=== PATIENT | female | born 1930 | race Caucasian/White ===

== ENCOUNTER 2016-07-21 14:51 | Outpatient (CLI) ==
[2014-10-07 18:55] VITALS: BMI 26.6
--- NOTE | 2016-07-21 15:21 | DI ---
EXAM: Radiographs, left tibia and fibula HISTORY: Left leg pain. COMPARISON: None available. TECHNIQUE: Two views. FINDINGS: Bone mineralization is decreased. There is no fracture or dislocation. Moderate osteoar thritic changes of the lateral knee joint compartment noted. Diffuse subcutaneous edema seen over t he distal aspect of the lower leg. IMPRESSION: 1. No fracture or dislocation. 2. Subcutaneous edema. 3. 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
--- NOTE | 2016-07-21 15:26 | DI ---
EXAM: Chest two view, frontal and lateral views. HISTORY: Cough. COMPARISON: 08/17/2014. FINDINGS: Heart is mildly enlarged. Atherosclerotic calcifications are present. Lungs are grossly clear without pleural effusion or pneumothorax. Degenerative changes present in the spine. IMPRESSION: No acute process.
== END 2016-07-21 14:52 | disposition home or self-care (01) ==
LOC: RAD 14:51
PROVIDERS: ATTEND Emergency Medicine
DX: M79.605 Pain in left leg (principal); R05 Cough

== ENCOUNTER 2017-01-24 00:56 | Emergency (ER) ==
[2017-01-24 01:10] VITALS: BP 152/98; TEMP 98.5; BMI 25.0
[2017-01-24 01:28] LABS: BILIRUBIN,URINE Negative (NEGATIVE); KETONES,URINE Negative (NEGATIVE); LEUKOCYTE ESTERASE ,URINE Trace (NEGATIVE); NITRITE,URINE Negative (NEGATIVE); PH,URINE 7.5 (5-9); PROTEIN,URINE Negative (NEGATIVE); URINE, BLOOD Negative (NEGATIVE)
[2017-01-24 01:32] LABS: BASOPHILS # (AUTO) 0.1 K/uL (0-0.2); BASOPHILS % (AUTO) 0.9 % (0.0-3.0); EOSINOPHILS % (AUTO) 0.4 % (0.0-7.0); HEMATOCRIT 36.9 % (37.0-47.0); HEMOGLOBIN 12.8 g/dl (12.0-16.0); LYMPHOCYTES # (AUTO) 1.7 K/uL (0.60-3.4); LYMPHOCYTES % (AUTO) 24.4 (10.0-50.0); MEAN CORPUSCULAR HEMOGLOBIN 33.4 pg (27.0-31.0); MEAN CORPUSCULAR HGB CONC 34.7 (31.8-35.4); MEAN CORPUSCULAR VOLUME 96.3 fl (81.0-99.0); MONOCYTES # (AUTO) 0.5 K/uL (0.4-2.0); MONOCYTES % (AUTO) 7.4 (0-10); NEUTROPHILS # (AUTO) 4.5 K/ul (2.0-6.9); NEUTROPHILS % (AUTO) 65.9; PLATELET COUNT 267 10^3/uL (140-440); RED BLOOD COUNT 3.83 10^6/ul (4.20-5.40)
[2017-01-24 01:34] LABS: ADD URINE MICROSCOPIC YES
[2017-01-24 01:55] LABS: ESR INTERNAL QC INTERNAL QC VALID
[2017-01-24 01:56] LABS: ERYTHROCYTE SEDIMENTATION RATE 24 mm/hr (0-20)
--- NOTE | 2017-01-24 01:57 | CT ---
EXAM: CT scan thorax without contrast HISTORY: Pain COMPARISON: CT scan thorax 08/17/2014 FINDINGS: Contiguous axial images obtained through the thorax without contrast utilizing 5-mm collim ation. Sagittal and coronal reconstructions were imaged and reviewed.. The thoracic inlet is unrema rkable. There are subcentimeter prevascular pretracheal lymph nodes. The heart is enlarged without pericardial effusion. There is moderate coronary artery calcification.. There is no evidence of nod ularity, infiltrate or effusion. There is a stable sclerotic focus at T5. Degenerate disc disease i s seen within the lower thoracic and upper lumbar spine. IMPRESSION: Cardiomegaly with coronary artery calcification. No evidence of active pulmonary disease. Ectatic ascending aorta.
[2017-01-24 02:02] LABS: ALBUMIN 4.2 g/dL (3.4-5.0); ALBUMIN/GLOBULIN RATIO 1.27; ANION GAP 14.1; BILIRUBIN,TOTAL 0.37 mg/dL (0.00-1.20); BUN/CREATININE RATIO 6.25; CALCIUM 10.1 mg/dL (8.2-10.2); CREATININE 0.64 mg/dL (0.60-1.30); POTASSIUM 4.1 mmol/L (3.5-5.10); TOTAL PROTEIN 7.5 g/dL (5.8-8.1); TROPONIN I 0.03 ng/ml (0.0000-0.4000)
[2017-01-24 02:03] LABS: CREATINE KINASE MB 3.2 ng/ml (0.0-3.6)
--- NOTE | 2017-01-24 02:04 | CT ---
EXAM: CT of the abdomen and pelvis without contrast. HISTORY: Abdominal pain. PROCEDURE: Contiguous axial CT images of the abdomen and pelvis without contrast with coronal and sa gittal reformats. FINDINGS: The liver, gallbladder, pancreas, spleen, adrenal glands and kidneys are normal in appeara nce. The abdominal aorta is within normal limits in diameter. The appendix is not visualized. There is fecal stasis in the cecum and ascending colon. There is a moderate amount of air in the colon. No bowel obstruction. There is diverticulosis of the colon with no evidence of diverticulitis. No f ree fluid or free air in the abdomen or pelvis. The bladder is adequately filled. There is a 2.4 cm bladder diverticulum along the left posterior wall of the bladder. The uterus is unremarkable. 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 There are degenerative changes in the spine. Impression: Nonspecific nonobstructive bowel gas pattern as described with fecal stasis in the colon. Diverticulosis of the colon without diverticulitis. Bladder diverticulum as described.
[2017-01-24] MEDS ORDERED: DULCOLAX RC STA (02:19)
[2017-01-24] MEDS ORDERED: CITRATE OF MAGNESIA PO STA (02:19)
--- NOTE | 2017-01-24 04:48 | ED.PDOC ---
General ED Provider: Dr. VLADIMIR BA-ER Chief Complaint: Abdominal Pain Stated Complaint: im hurting Time Seen by Physician: 01:00 Mode of Arrival: Wheelchair Information Source: Patient Exam Limitations: No limitations Primary Care Provider: FRANSICO WHALEN Nursing and Triage Documentation Reviewed and Agree: Yes GI Complaint Exam - Abdominal Pain Complaint/Exam Onset: Gradual Duration: several hours Symptoms Are: Still present Timing: Constant Initial Severity: Mild Current Severity: Mild Location of Pain: Discrete, RLQ Character: Reports: Dull, Aching, Throbbing, Cramping Alleviating: Reports: Spontaneous resolution Associated Signs and Symptoms: Reports: Constipation. Denies: Diaphoresis, Fever, Cough, Chest pain, Dizziness, Back pain, Blood in stool, Dysuria, Urinary frequency, Decreased urine output, Decreased appetite, Vaginal bleeding , Vaginal discharge, Nausea, Vomiting, Diarrhea, Sore throat, Decreased activity Related History: Reports: Similar episode Abdominal Findings: Present: None Differential Diagnoses: Bowel Obstruction, Constipation, Gastroenteritis, Pancreatitis Quality Indicator For Non-Traumatic Chest Pain/Syncope: EKG Performed Review of Systems - Review Of Systems Constitutional: Reports: No symptoms Eyes: Reports: No symptoms Ears, Nose, Mouth, Throat: Reports: No symptoms Respiratory: Reports: No symptoms Cardiac: Reports: No symptoms GI: Reports: Abdominal pain : Reports: No symptoms Musculoskeletal: Reports: No symptoms, Muscle pain Skin: Reports: No symptoms Neurological: Reports: No symptoms Endocrine: Reports: No symptoms Hematologic/Lymphatic: Reports: No symptoms All Other Systems: Reviewed and Negative Past Medical History - Past Medical History Previously Healthy: No Endocrine: Reports: Unknown Cardiovascular: Reports: Unknown Respiratory: Reports: Unknown Hematological: Reports: Unknown Gastrointestinal: Reports: Unknown Genitourinary: Reports: Unknown Neuro/Psych: Reports: Unknown Musculoskeletal: Reports: Unknown Cancer: Reports: Unknown Last Menstrual Period: post menopausal - Surgical History General Surgical History: Reports: Unknown - Family History Family History: Reports: Unknown - Social History Smoking Status: Never smoker Hx Substance Use: No Alcohol Screening: None - Immunizations Tetanus Shot up to Date: Yes Physical Exam - Physical Exam Appearance: Well-appearing, No pain distress, Well-nourished Pain Distress: Mild Eyes: JENNA, EOMI, Conjunctiva clear ENT: Ears normal, Nose normal, Oropharynx normal Neck: Supple Respiratory: Airway patent, Breath sounds clear, Breath sounds equal, Respirations nonlabored Cardiovascular: RRR, Pulses normal, No rub, No murmur GI/: Soft, Nontender, No masses, Bowel sounds normal, No Organomegaly Musculoskeletal: Normal strength, ROM intact, No edema, No calf tenderness Skin: Warm Neurological: Sensation intact Psychiatric: Affect appropriate, Mood appropriate Interpretation - Radiology Interpretation Radiology Interpretation By: Radiologist Radiology Results: Negative Exam Interpreted: CT Scan ("nonspecific bowel gas pattern wtih fecal stasis in the colon") - EKG Interpretation Time of EKG #1: 01:00 Rate: Normal [place]: Left ST Segment: Normal Re-Evaluation - Re-Evaluation Time of Re-Evaluation: 04:48 Status: Improved (after laxatives--expelled stool and gas and the symptoms resolved--no further abd pain) Vital Signs Stable: Yes Pain Level: 0 Appearance: NAD Lungs: Clear Skin: Warm and Dry Neuro: Alert and Oriented X3 CV: RRR Critical Care Note - Critical Care Note Total Time (mins): 0 Course - Course Hematology/Chemistry: 01/24/17 01:20 01/24/17 01:20 Orders, Labs, Meds: Lab Review 01/24/17 01/24/17 01/24/17 01:17 01:20 01:20 WBC 6.80 RBC 3.83 L Hgb 12.8 Hct 36.9 L MCV 96.3 MCH 33.4 H MCHC 34.7 RDW Coeff of Alfie 11.9 Plt Count 267 Immature Gran % (Auto) 1.0 Neut % (Auto) 65.9 Lymph % (Auto) 24.4 Anderson % (Auto) 7.4 Eos % (Auto) 0.4 Baso % (Auto) 0.9 Immature Gran # (Auto) 0.1 Neut # 4.5 Lymph # 1.7 Anderson # 0.5 Eos # 0.0 Baso # 0.1 ESR 24 H Sodium 135 L Potassium 4.1 Chloride 94 L Carbon Dioxide 31 Anion Gap 14.1 BUN 4 L Creatinine 0.64 Estimated GFR (MDRD) 88.00 BUN/Creatinine Ratio 6.25 Glucose 114 Calcium 10.1 Total Bilirubin 0.37 AST 42 H ALT 24 Alkaline Phosphatase 105 Total Creatine Kinase 130 CK-MB (CK-2) 3.2 CK-MB (CK-2) % 2.67584 Troponin I 0.0300 Total Protein 7.5 Albumin 4.2 Globulin 3.3 Albumin/Globulin Ratio 1.27 Amylase 59 Lipase 75 Urine Color Yellow Urine Clarity Clear Urine pH 7.5 Ur Specific [place] 1.015 Urine Protein Negative Urine Glucose (UA) Negative Urine Ketones Negative Urine Blood Negative Urine Nitrite Negative Urine Bilirubin Negative Urine Urobilinogen 0.2 Ur Leukocyte Esterase Trace Urine Microscopic WBC 0-2 Ur Squamous Epith Cells 0-2 Orders Category Date Time Status EKG-(ED ONLY) Stat CARDIO 01/24/17 01:05 Ordered AMYLASE Stat LAB 01/24/17 01:20 Completed CBC W/ AUTO DIFF Stat LAB 01/24/17 01:20 Completed COMPREHENSIVE METABOLIC PANEL Stat LAB 01/24/17 01:20 Completed CREATINE KINASE Stat LAB 01/24/17 01:20 Completed ESR Stat LAB 01/24/17 01:20 Completed LIPASE Stat LAB 01/24/17 01:20 Completed TROPONIN I Stat LAB 01/24/17 01:20 Completed URINALYSIS C & S IF INDICATED Stat LAB 01/24/17 01:17 Completed Bisacodyl [Dulcolax] MEDS 01/24/17 02:19 Discontinued 10 mg RC ONCE STA Magnesium Citrate [Citrate of Magnesia] MEDS 01/24/17 02:19 Discontinued 5 oz PO ONCE STA CT ABDOMEN/PELVIS WO CONTRAST Stat RADS 01/24/17 01:[address] CHEST W/O CONTRAST Stat RADS 01/24/17 01:05 Completed Medications Discontinued Medications Generic Name Dose Route Start Last Admin Trade Name Freq PRN Reason Stop Dose Admin Bisacodyl 10 mg 01/24/17 02:19 01/24/17 02:32 Dulcolax RC 01/24/17 02:20 10 mg ONCE STA Administration Magnesium Citrate 5 oz 01/24/17 02:19 01/24/17 02:32 Citrate Of Magnesia PO 01/24/17 02:20 5 oz ONCE STA Administration Vital Signs: Temp Pulse Resp BP Pulse Ox 01/24/17 00:59 98.5 F 82 18 152/98 H 95 Departure - Departure Time of Disposition: 04:49 Disposition: HOME SELF-CARE Discharge Problem: Constipation Qualifiers: Constipation type: unspecified constipation type Qualified Code(s): K59.00 - Constipation, unspecified Instructions: Constipation (ED) Condition: Good Pt referred to PMD for follow-up: Yes Additional Instructions: f/u with dr whalen Allergies/Adverse Reactions: Allergies celecoxib [From Celebrex] Adverse Reaction (Intermediate, Verified 10/07/14 18: 56) Rash Iodinated Contrast- Oral and IV Dye [Iodinated Contrast Media - IV Dye] Adverse Reaction (Verified 10/07/14 18:56) Home Medications: Ambulatory Orders Gabapentin [Gabapentin] 1 cap PO BID 07/17/14 Pantoprazole Sodium 40 mg PO BEDTIME 07/17/14 Hydrocodone/Acetaminophen [Hydrocodon-Acetaminoph 7.5-325] 1 tab PO QID PRN # 120 tablet 07/22/14 Losartan Potassium [Cozaar] 100 mg PO DAILY 08/18/14 Rosuvastatin Calcium [Crestor] 10 mg PO DAILY 08/18/14 Amlodipine Besylate [Norvasc] 5 mg PO BEDTIME 10/07/14 Furosemide [Lasix] 20 mg PO DAILY 10/07/14 Docusate Sodium [Colace] 1 tab PO BID PRN 01/24/17 Disposition Discussed With: Patient, Family
== END 2017-01-24 04:55 | disposition home or self-care (01) ==
LOC: ED 00:56
DX: K59.00 Constipation, unspecified (principal); R10.9 Unspecified abdominal pain; Z79.899 Other long term (current) drug therapy
CPT/HCPCS: 36415; 80053; 81001; 82150; 82550; 82553; 83690; 84484; 85025; 85651; 93005; 93010; 99283

== ENCOUNTER 2017-02-15 13:40 | Outpatient (CLI) | END 2017-02-15 13:41 | disposition home or self-care (01) | LOC: RAD 13:40 | PROVIDERS: ATTEND Internal Medicine | DX: Z12.31 Encounter for screening mammogram for malignant neoplasm of breast (principal) | CPT/HCPCS: 77067 ==

== ENCOUNTER 2017-03-14 06:44 | Outpatient (CLI) ==
--- NOTE | 2017-03-15 07:39 | ECHO2D ---
Date of Exam: 03/14/17 Ordering Physician: FRANSICO BALLARD MD Reason for Echo: HYPERTENSION, DYSLIPIDEMIA, CARDIOMYOPATHY, SHORT OF BREATH M-Mode Normal Adult Results LV Dimensions Normal Adult Results AoV Opening excursions >1.6 >1.6 LVEDD-base- 3.5-5.8 5.5 Ao root dimensions 2.0-3.7 2.8 LVESD-base- 3.1-4.6 L. Atrium dimensions 1.9-3.8 4.4 Post. Wall thickness 0.8-1.1 1.4 IV septum (thickness) 0.7-1.2 1.4 Post. Wall excursion 0.72-1.3 0.7 Septal motion 0.6 Systolic motion R. Ventricular cavity 1.5-2.0 NORMAL LVEF 60% 40-45% Paradoxical septal wall motion NORMAL 2-D : HYPOKINETIC LEFT VENTRICLE: ENLARGED LEFT ATRIAL CAVITY, NORMAL VALVES, NO EFFUSION, NO THROMBUS M-MODE: MV: NORMAL AV: NORMAL TV: NORMAL PV: CHAMBER SIZE: ENLARGED LEFT ATRIAL CAVITY WALL MOTION: HYPOKINETIC LEFT VENTRICLE PERICARDIUM: NORMAL INTERPRETATION: 1. LEFT VENTRICULAR HYPERTROPHY WITH ENLARGED LEFT ATRIAL CAVITY 2. HYPOKINETIC LEFT VENTRICLE (40-45% EF) 3. NORMAL VALVES MTDD
== END 2017-03-14 06:45 | disposition home or self-care (01) ==
LOC: CAR 06:44
PROVIDERS: ATTEND Internal Medicine
DX: E78.5 Hyperlipidemia, unspecified (principal); I10 Essential (primary) hypertension; R06.02 Shortness of breath; I42.9 Cardiomyopathy, unspecified
CPT/HCPCS: 93005; 93010

== ENCOUNTER 2017-03-17 06:38 | Outpatient (CLI) ==
--- NOTE | 2017-03-17 06:48 | ECHOSTRESS ---
Date of Exam: [] Ordering Physician: [] Reason for Echo: [] Auscultation: [] Murmurs: [] M-Mode Normal Adult Results LV Dimensions Normal Adult Results AoV Opening excursions >1.6 LVEDD-base- 3.5-5.8 Ao root dimensions 2.0-3.7 LVESD-base- 3.1-4.6 L. Atrium dimensions 1.9-3.8 Post. Wall thickness 0.8-1.1 IV septum (thickness) 0.7-1.2 Post. Wall excursion 0.72-1.3 Septal motion Systolic motion R. Ventricular cavity 1.5-2.0 LVEF 60% Paradoxical septal wall motion 2-D: [] M-MODE: MV: AV: TV: PV: CHAMBER SIZE: WALL MOTION: [] PERICARDIUM: INTERPRETATION: 1. [] MTDD
[2017-03-17] MEDS ORDERED: DOBUTAMINE 250 ML IV ONE (07:06)
[2017-03-17] MEDS ORDERED: ATROPINE SULFATE PFS ONE (07:07)
--- NOTE | 2017-03-17 10:19 | NM ---
EXAM: Myocardial perfusion imaging HISTORY: Abnormal EKG and hypertension, shortness of breath COMPARISON: None. TECHNIQUE: Patient was injected 4.1 mCi of thallium 201 chloride intravenously while at rest. SPECT imaging of the heart was acquired. Patient was stressed using dobutamine protocol and injected 25.1 mCi of Tc99m Sestamibi intravenously. Another SPECT imaging of the heart was then performed. Gated cardiac study was also acquired. FINDINGS: Post stress images show mildly enlarged left ventricular cavity size. Isotope distribution is homogeneous in the left ventricle myocardium. No evidence of dobutamine-induced reversible ische cem. No fixed defect is visualized. Left ventricular ejection fraction is 35%. Mild generalized hyp okinesis. IMPRESSION: 1. SPECT myocardial imaging at stress and rest shows no evidence of reversible ischemia or infarctio n. 2. Mildly enlarged left ventricle with low ejection fraction of 35%.. Mild generalized hypokinesis.
--- NOTE | 2017-03-17 14:22 | DOBSTECHST ---
Ordering Physician: FRANSICO BALLARD Date of Test: 03/17/17 Reason for Examination: CARDIOMYOPATHY Current Medications: TEMAZEPAM, CARVEDILOL, XANAX, LASIX, NEURONTIN, CRESTOR, AMLODIPINE, COZAAR Height: 65" Weight: 155 LBS Target Heart Rate: 113 ST Segment Stage Time HR BPM BP mmhg Rhythm +/- Up Down Comments/Symptoms Control Sitting 67 166/94 SR X NONE Dobutamine 250mg/D5W 5cmg/KG/mn 10cmg/KG/mn 3:00 75 190/98 SR X NONE 15cmg/KG/mn 2:00 98 178/92 SR X NONE 20cmg/KG/mn 1:19 120 SR X NONE 25cmg/KG/mn 30cmg/KG/mn 35cmg/KG/mn 40cmg/KG/mn Time: 2" HR B/P Time: 6" HR B/P Time: 10" HR B/P Recovery 115 174/90 Recovery 88 166/88 Recovery 75 Total Time: 6:19 Maximum Heart Rate Reached: 120 Interpretation: 95% OXYGEN SATURATION AT REST 1. NO EVIDENCE OF ISCHEMIA BY ST-T WAVE 2. NO CHEST PAIN OR DISCOMFORT LEFT VENTRICULAR CONTRACTILITY--HYPOKINETIC LEFT VENTRICLE AT RESTING AND IMPROVEMENT OF LEFT VENTRICULAR CONTRACTILITY WITH DOBUTAMINE INFUSION SESTAMIBI TO FOLLOW MTDD
--- NOTE | 2017-03-17 14:25 | ECHOSTRESS ---
Date of Exam: 03/17/17 Ordering Physician: FRANSICO BALLARD Reason for Echo: CARDIOMYOPATHY, DOBUTAMINE STRESS TEST--NO ISCHEMIA M-Mode Normal Adult Results LV Dimensions Normal Adult Results AoV Opening excursions >1.6 LVEDD-base- 3.5-5.8 Ao root dimensions 2.0-3.7 LVESD-base- 3.1-4.6 L. Atrium dimensions 1.9-3.8 Post. Wall thickness 0.8-1.1 IV septum (thickness) 0.7-1.2 Post. Wall excursion 0.72-1.3 Septal motion Systolic motion R. Ventricular cavity 1.5-2.0 LVEF 60% Paradoxical septal wall motion 2-D: HYPOKINETIC LEFT VENTRICLE AT REST AND IMPROVED LEFT VENTRICULAR CONTRACTILITY WITH DOBUTAMINE INFUSION M-MODE: MV: AV: TV: PV: CHAMBER SIZE: WALL MOTION: HYPOKINETIC LEFT VENTRICLE AT REST AND IMPROVED LEFT VENTRICULAR CONTRACTILITY WITH DOBUTAMINE INFUSION PERICARDIUM: INTERPRETATION: 1. HYPOKINETIC LEFT VENTRICLE AT REST AND IMPROVED LEFT VENTRICULAR CONTRACTILITY WITH DOBUTAMINE INFUSION MTDD
== END 2017-03-17 06:39 | disposition home or self-care (01) ==
LOC: CAR 06:38
PROVIDERS: ATTEND Internal Medicine
DX: R94.31 Abnormal electrocardiogram [ECG] [EKG] (principal); R06.02 Shortness of breath; I10 Essential (primary) hypertension; Z01.810 Encounter for preprocedural cardiovascular examination

== ENCOUNTER 2017-12-18 22:35 | Outpatient (CLI) | END 2017-12-18 23:10 | disposition short-term general hospital (02) | LOC: AMBL 22:35 | PROVIDERS: ATTEND Family Medicine | DX: R07.9 Chest pain, unspecified (principal); F41.9 Anxiety disorder, unspecified; R06.02 Shortness of breath; I44.7 Left bundle-branch block, unspecified ==

== ENCOUNTER 2018-02-06 00:04 | Inpatient (IN) ==
[2018-02-06] MEDS ORDERED: ZOFRAN 4 MG/2 ML IVP STA (00:45)
--- NOTE | 2018-02-06 00:50 | DI ---
Exam: Chest one-view History: Leg edema FINDINGS: Cardiac silhouette is upper limits. Pulmonary vasculature is normal. No infiltrative opa cities. Mild left hemidiaphragm elevation. Atherosclerotic calcification of the aorta. Dorsal stim ulator leads at the mid thoracic level. No acute chest wall abnormality is seen. Impression: No acute cardiopulmonary disease.
--- NOTE | 2018-02-06 01:04 | CT ---
EXAM: CT abdomen pelvis without intravenous contrast 02/06/2018. Sagittal and coronal reformatted i mages obtained HISTORY: Constipation COMPARISON: None. FINDINGS: The liver, gallbladder, adrenal glands and kidneys show no acute abnormality. No hydronephrosis. The spleen and pancreas show no acute abnormality. There is no bowel obstruction. No CT evidence of constipation. Normal appendix. No acute abnormality of the urinary bladder. The pelvis is partially obscured by s treak artifact secondary to bilateral hip arthroplasty. No free air or free fluid identified. Multilevel chronic degenerative disc disease. Chronic degenerative endplate changes. No acute osseou s abnormality. IMPRESSION: 1. No urinary or bowel obstruction and normal appendix. 2. No acute inflammatory process identified within the abdomen or pelvis within the limitation of a n oncontrast enhanced examination 3. Pelvis partially obscured by streak artifacts secondary to bilateral hip arthroplasty. 4. Multilevel chronic degenerative disc disease. No acute osseous abnormality.
--- NOTE | 2018-02-06 01:36 | ED.PDOC ---
General ED Provider: Dr. VLADIMIR BA-ER Chief Complaint: Constipation Stated Complaint: my legs are swollen Time Seen by Physician: 00:10 Mode of Arrival: Wheelchair Information Source: Patient Exam Limitations: No limitations Primary Care Provider: FRANSICO BALLARD Nursing and Triage Documentation Reviewed and Agree: Yes Does patient meet sepsis criteria?: No System Inflammatory Response Syndrome: Not Applicable Sepsis Protocol: For patient's 13 years and over: Temp is 96.8 and below OR 101 and greater Pulse >90 BPM Resp >20/minute Acutely Altered Mental Status Are patient's symptoms suggestive of a new infection, such as: -Pneumonia -Skin, Soft Tissue -Endocarditis -UTI -Bone, Joint Infection -Implantable Device -Acute Abdominal Infection -Wound Infection -Meningitis -Blood Stream Catheter Infection -Unknown Cardiovascular Complaint Exam - Hypertension Complaint/Exam Onset/Duration: several days Symptoms Are: Still present Reported B/P Prior to Arrival: unknown Aggravating: Reports: None Alleviating: Reports: None Associated Signs and Symptoms: Reports: Swelling Related Surgical History: Reports: None Cardiac Risk Factors: Reports: None Recent Change in Medications: No A/V [place]: No Papilledema Present: No JVD Present: No Carotid Bruit Present: No Femoral Pulses Bounding: Yes Quality Indicator For Non-Traumatic Chest Pain/Syncope: EKG Performed Review of Systems - Review Of Systems Constitutional: Reports: No symptoms Eyes: Reports: No symptoms Ears, Nose, Mouth, Throat: Reports: No symptoms Respiratory: Reports: No symptoms Cardiac: Reports: Edema, Irregular heart rate GI: Reports: No symptoms : Reports: No symptoms Musculoskeletal: Reports: No symptoms Skin: Reports: No symptoms Neurological: Reports: No symptoms Endocrine: Reports: No symptoms Hematologic/Lymphatic: Reports: No symptoms All Other Systems: Reviewed and Negative Past Medical History - Past Medical History Previously Healthy: No Endocrine: Reports: Unknown Cardiovascular: Reports: Unknown Respiratory: Reports: Unknown Hematological: Reports: Unknown Gastrointestinal: Reports: Unknown Genitourinary: Reports: Unknown Neuro/Psych: Reports: Unknown Musculoskeletal: Reports: Unknown Cancer: Reports: Unknown Last Menstrual Period: menopausal - Surgical History General Surgical History: Reports: Unknown - Family History Family History: Reports: Unknown - Social History Smoking Status: Never smoker Hx Substance Use: No Alcohol Screening: None - Immunizations Tetanus Shot up to Date: Yes (2 yrs ago) Physical Exam - Physical Exam Appearance: Well-appearing, No pain distress, Well-nourished Eyes: JENNA, EOMI, Conjunctiva clear ENT: Ears normal Neck: Supple Respiratory: Airway patent, Breath sounds clear, Breath sounds equal, Respirations nonlabored Cardiovascular: RRR, Pulses normal, No rub, No murmur, Irregular rhythm GI/: Soft, Nontender, No masses, Bowel sounds normal, No Organomegaly Musculoskeletal: Normal strength Skin: Warm Neurological: Sensation intact, Motor intact, Reflexes intact, Cranial nerves intact, Alert, Oriented Psychiatric: Affect appropriate, Mood appropriate Interpretation - Radiology Interpretation Radiology Interpretation By: Radiologist Radiology Results: Negative Exam Interpreted: Portable CXR - EKG Interpretation Time of EKG #1: 01:37 Rate: Normal Rhythm: Other Ectopy: None [place]: [place] ST Segment: Normal Interpretation: afib Critical Care Note - Critical Care Note Total Time (mins): 0 Course - Course Hematology/Chemistry: 02/06/18 00:40 02/06/18 00:40 Orders, Labs, Meds: Lab Review 02/06/18 02/06/18 02/06/18 00:22 00:30 00:40 WBC 8.32 RBC 3.85 L Hgb 12.6 Hct 35.2 L MCV 91.4 MCH 32.7 H MCHC 35.8 H RDW Coeff of Alfie 11.4 L Plt Count 269 Immature Gran % (Auto) 0.6 Neut % (Auto) 83.2 Lymph % (Auto) 10.7 [place] % (Auto) 5.3 Eos % (Auto) 0.1 Baso % (Auto) 0.1 Immature Gran # (Auto) 0.1 Neut # (Auto) 6.9 Lymph # (Auto) 0.9 [place] # (Auto) 0.4 Eos # (Auto) 0.0 Baso # (Auto) 0.0 Puncture Site Rbrach O2 Saturation 96.0 ABG pH 7.481 H ABG pCO2 45.9 H ABG pO2 78.0 L ABG HCO3 34.3 H ABG Total CO2 36 H ABG Base Excess 11 H Kleber Test + FiO2 % 21.0 Sodium Potassium Chloride Carbon Dioxide Anion Gap BUN Creatinine Estimated GFR (MDRD) BUN/Creatinine Ratio Glucose Calcium Total Bilirubin AST ALT Alkaline Phosphatase Total Creatine Kinase Troponin I NT-Pro-B Natriuret Pep Total Protein Albumin Globulin Albumin/Globulin Ratio Amylase Lipase TSH Urine Color Yellow Urine Clarity Clear Urine pH 7.0 Ur Specific [place] 1.010 Urine Protein Negative Urine Glucose (UA) Negative Urine Ketones Negative Urine Blood Negative Urine Nitrite Negative Urine Bilirubin Negative Urine Urobilinogen 0.2 Ur Leukocyte Esterase Negative 02/06/18 02/06/18 00:40 00:40 WBC RBC Hgb Hct MCV MCH MCHC RDW Coeff of Alfie Plt Count Immature Gran % (Auto) Neut % (Auto) Lymph % (Auto) [place] % (Auto) Eos % (Auto) Baso % (Auto) Immature Gran # (Auto) Neut # (Auto) Lymph # (Auto) [place] # (Auto) Eos # (Auto) Baso # (Auto) Puncture Site O2 Saturation ABG pH ABG pCO2 ABG pO2 ABG HCO3 ABG Total CO2 ABG Base Excess Kleber Test FiO2 % Sodium 121.9 L Potassium 3.12 L Chloride 73.4 L* Carbon Dioxide 37.2 H Anion Gap 14.42 BUN 6.8 L Creatinine 0.64 Estimated GFR (MDRD) 88.00 BUN/Creatinine Ratio 10.62 Glucose 160.8 H Calcium 8.83 Total Bilirubin 0.51 AST 47.2 H ALT 17.3 Alkaline Phosphatase 81.8 Total Creatine Kinase 78.4 Troponin I < 0.012 NT-Pro-B Natriuret Pep 680.000 H Total Protein 7.57 Albumin 4.59 Globulin 2.98 Albumin/Globulin Ratio 1.54 Amylase 55.7 Lipase 77.3 TSH 1.080 Urine Color Urine Clarity Urine pH Ur Specific [place] Urine Protein Urine Glucose (UA) Urine Ketones Urine Blood Urine Nitrite Urine Bilirubin Urine Urobilinogen Ur Leukocyte Esterase Orders Category Date Time Status ABG DRAW REQUEST Stat CARDIO 02/06/18 00:22 Completed EKG-(ED ONLY) Stat CARDIO 02/06/18 00:22 Completed ED IV/MEDIPORT/POWERPORT .ONCE EMERGENCY 02/06/18 00:45 Active ABG Stat LAB 02/06/18 00:22 Completed AMYLASE Stat LAB 02/06/18 00:40 Completed CBC W/ AUTO DIFF Stat LAB 02/06/18 00:40 Completed COMPREHENSIVE METABOLIC PANEL Stat LAB 02/06/18 00:40 Completed CREATINE KINASE Stat LAB 02/06/18 00:40 Completed LIPASE Stat LAB 02/06/18 00:40 Completed NT-PROBNP Stat LAB 02/06/18 00:40 Completed TROPONIN I Stat LAB 02/06/18 00:40 Completed TSH [THYROID STIMULATING HORMONE] Stat LAB 02/06/18 00:40 Completed UA [URINALYSIS C & S IF INDICATED] Stat LAB 02/06/18 00:30 Completed 0.9 % Sodium Chloride [Saline Flush] MEDS 02/06/18 00:45 Ordered 1 syr IVF PRN PRN Ondansetron HCl/Pf [Zofran 4 mg/2 ml] MEDS 02/06/18 00:45 Discontinued 4 mg IVP ONCE STA CT ABDOMEN/PELVIS WO CONTRAST Stat RADS 02/06/18 00:23 Completed CXR [CHEST, 1V AP ONLY] Stat RADS 02/06/18 00:23 Completed Medications Generic Name Dose Route Start Last Admin Trade Name Freq PRN Reason Stop Dose Admin Sodium Chloride 1 syr 02/06/18 00:45 02/06/18 01:16 Saline Flush IVF 1 syr PRN PRN Administration To flush IV Discontinued Medications Generic Name Dose Route Start Last Admin Trade Name Freq PRN Reason Stop Dose Admin Ondansetron HCl 4 mg 02/06/18 00:45 02/06/18 01:16 Zofran 4 Mg/2 Ml IVP 02/06/18 00:46 4 mg ONCE STA Administration Vital Signs: Temp Pulse Resp BP Pulse Ox 02/06/18 00:05 98.4 F 70 18 124/73 93 L FLAKITA Risk Score FLAKITA Risk Score: Risk Score Odds of by 30D 0 0.1 (0.1-0.2) 1 0.3 (0.2-0.3) 2 0.4 (0.3-0.5) 3 0.7 (0.6-0.9) 4 1.2 (1.0-1.5) 5 2.2 (1.9-2.6) 6 3.0 (2.5-3.6) 7 4.8 (3.8-6.1) Departure - Departure Time of Disposition: 01:37 Disposition: ADMITTED INPATIENT Discharge Problem: Hyponatremia CHF (congestive heart failure) Qualifiers: Heart failure type: unspecified Heart failure chronicity: acute on chronic Qualified Code(s): I50.9 - Heart failure, unspecified Instructions: Heart Failure (ED) Condition: Stable Pt referred to PMD for follow-up: Yes IPMP verified?: No Allergies/Adverse Reactions: Allergies celecoxib [From Celebrex] Adverse Reaction (Intermediate, Verified 02/06/18 01: 11) Rash Iodinated Contrast- Oral and IV Dye [Iodinated Contrast Media - IV Dye] Adverse Reaction (Verified 02/06/18 01:11) Home Medications: Ambulatory Orders Gabapentin 1 cap PO BID 07/17/14 Pantoprazole Sodium 40 mg PO BEDTIME 07/17/14 Losartan Potassium [Cozaar] 100 mg PO DAILY 08/18/14 Rosuvastatin Calcium [Crestor] 10 mg PO DAILY 08/18/14 Amlodipine Besylate [Norvasc] 5 mg PO BEDTIME 10/07/14 Furosemide [Lasix] 20 mg PO DAILY 10/07/14 Docusate Sodium [Colace] 1 tab PO BID PRN 01/24/17 Cephalexin [Keflex] 500 mg PO Q8HR 02/06/18 Hydrocodone/Acetaminophen [Hydrocodon-Acetaminophn 10-325] 10 - 325 each PO BID PRN 02/06/18 Morphine Sulfate [Ms Contin] 15 mg PO Q12HR PRN 02/06/18 Naloxegol Oxalate [Movantik] 12.5 mg pe PO DAILY 02/06/18 Ondansetron HCl [Zofran] 4 mg PO TID PRN 02/06/18 Prednisone 10 mg PO BIDWM 02/06/18 Temazepam [Restoril] 30 mg PO BEDTIME PRN 02/06/18 Disposition Discussed With: Patient, Family
[2018-02-06] MEDS ORDERED: COLACE PO PRN (01:42)
[2018-02-06] MEDS ORDERED: ZOFRAN TAB PO PRN (01:42)
[2018-02-06] MEDS ORDERED: NON-FORMULARY MEDICATION (Temazepam [Restoril] 30 MG) PO PRN (01:42)
[2018-02-06] MEDS ORDERED: NORCO 10-325 PO PRN (01:42)
[2018-02-06 03:03] VITALS: BMI 26.1
[2018-02-06] MEDS ORDERED: NORVASC ONE (03:34)
[2018-02-06] MEDS ORDERED: MORPHINE SULFATE TAB ONE (03:34)
[2018-02-06] MEDS ORDERED: RESTORIL ONE (03:35)
[2018-02-06] MEDS ORDERED: K-DUR PO STA (06:34)
[2018-02-06] MEDS: K-DUR PO SCH ×4 (08:29→20:35)
[2018-02-06] MEDS: CRESTOR PO SCH (08:29)
[2018-02-06] MEDS: PREDNISONE PO SCH ×2 (08:29→16:56)
[2018-02-06] MEDS: NEURONTIN PO SCH ×2 (08:29→21:46)
[2018-02-06] MEDS: LOVENOX SUBCUT SCH (08:30)
[2018-02-06] MEDS: COZAAR PO SCH (08:30)
[2018-02-06] MEDS: LASIX IVP SCH (08:30)
[2018-02-06] MEDS ORDERED: DULCOLAX RC STA (08:43)
[2018-02-06] MEDS ORDERED: CITRATE OF MAGNESIA PO STA (08:43)
[2018-02-06] MEDS: MS CONTIN PO PRN (10:03)
--- NOTE | 2018-02-06 11:27 | PCM.PROG ---
Attending Provider: ATTENDING PROVIDER: Dr. FRANSICO BALLARD DATE OF SERVICE: 02/06/18 SUBJECTIVE: This 87 year old WHITE/ F was hospitalized 02/06/18 with leg edema and constipation. The patient was given two enemas, so far no results. The patient also has hypokalemia and hyponatremia. Edema is a lot better than what I saw in the office a few days ago. Left edema is more than right. Calf is nontender. REVIEW OF SYSTEMS: CONSTITUTIONAL: No night sweats. No fatigue, malaise, lethargy. No fever or chills. HEENT: Eyes: No visual changes. No eye pain. No eye discharge. ENT: No runny nose. No epistaxis. No sinus pain. No odynophagia. No congestion. RESPIRATORY: No cough, no congestion. No hemoptysis. No shortness of breath. CARDIOVASCULAR: Leg swelling. No angina symptoms. No CHF symptoms. No atypical chest pain for CAD. No palpitations. No orthopnea.. GASTROINTESTINAL: Positive for constipation. No abdominal pain. No nausea or vomiting. No diarrhea. No hematemesis. No hematochezia. GENITOURINARY: No urgency. No frequency. No dysuria. No hematuria. No obstructive symptoms. No discharge. No pain. No significant abnormal bleeding. MUSCULOSKELETAL: No musculoskeletal pain; no joint swelling. NEUROLOGICAL: Awake, alert, oriented to time, place and person. No headache. No neck pain. No syncope. No seizures. No dizziness. PSYCHIATRIC: Not anxious. No depression. No suicidal thoughts. No homicidal thoughts. SKIN: No rash. No lesions. No wounds. ENDOCRINE: No unexplained weight loss. No weight gain. HEMATOLOGIC/LYMPHATIC: No anemia. No purpura. No petechiae. No prolonged or excessive bleeding. No palpable lymph nodes. PHYSICAL EXAMINATION: GENERAL: The patient is awake, alert and oriented, lying in bed in no distress. VITAL SIGNS: Temperature 97.6 F, Pulse 59, Respiratory Rate 16, BP 121/69, Pulse Ox 99% HEENT: Head normocephalic, atraumatic. Eyes: Extraocular muscles are intact. Pupils are equal, round and reactive to light and accommodation. Ears: No lesions. Nose appeared normal. Throat: No exudate or erythema. NECK: Supple. No JVD, no carotid bruit. No lymphadenopathy or thyromegaly. LUNGS: Clear to auscultation. Percussion note normal. Chest symmetrical. HEART: S1, S2, no S3. No murmurs. No cyanosis or clubbing. No ascites. Pulses: Dorsalis pedis and posterior tibial pulses +1 to +2 both sides. ABDOMEN: Soft. Non-tender. Bowel sounds active. No CVA tenderness. No mass felt. EXTREMITIES: 1+ pitting edema. The edema is lot better than when I saw her in the office a few days ago but edema is greater on the left than right. Calf nontender. Full range of motion of all extremities, equal. NEUROLOGIC: No focal deficit. Cranial nerves II through XII are grossly intact. No headache, no double vision or headache. SKIN: Warm and dry. Intact. Turgor-normal. LYMPHATIC: No palpable lymph nodes/no lymphedema. MUSCULOSKELETAL: Normal joints with no swelling. Muscle tone is normal. LAB REVIEW: 02/06/18 05:45 02/06/18 05:45 02/06/18 05:45: Sodium 123.4 L, Potassium 2.68 L*, Chloride 75.7 L, Carbon Dioxide 38.9 H, Anion Gap 11.48, BUN 5.9 L, Creatinine 0.62, Estimated GFR (MDRD ) 91.00, BUN/Creatinine Ratio 9.51, Glucose 114.9 H, Calcium 8.62, Total Bilirubin 0.42, AST 38.8 H, ALT 14.8, Alkaline Phosphatase 68.6, Total Protein 6.60, Albumin 3.99, Globulin 2.61, Albumin/Globulin Ratio 1.52 02/06/18 05:45: WBC 6.47, RBC 3.43 L, Hgb 11.2 L, Hct 31.4 L, MCV 91.5, MCH 32.7 H, MCHC 35.7 H, RDW Coeff of Alfie 11.4 L, Plt Count 221, Immature Gran % ( Auto) 0.3, Neut % (Auto) 69.4, Lymph % (Auto) 22.1, [place] % (Auto) 8.0, Eos % ( Auto) 0.2, Baso % (Auto) 0.0, Immature Gran # (Auto) 0.0, Neut # (Auto) 4.5, Lymph # (Auto) 1.4, [place] # (Auto) 0.5, Eos # (Auto) 0.0, Baso # (Auto) 0.0 02/06/18 00:40: Total Creatine Kinase 78.4, Troponin I < 0.012, TSH 1.080 02/06/18 00:40: Sodium 121.9 L, Potassium 3.12 L, Chloride 73.4 L*, Carbon Dioxide 37.2 H, Anion Gap 14.42, BUN 6.8 L, Creatinine 0.64, Estimated GFR (MDRD ) 88.00, BUN/Creatinine Ratio 10.62, Glucose 160.8 H, Calcium 8.83, Total Bilirubin 0.51, AST 47.2 H, ALT 17.3, Alkaline Phosphatase 81.8, NT-Pro-B Natriuret Pep 680.000 H, Total Protein 7.57, Albumin 4.59, Globulin 2.98, Albumin/Globulin Ratio 1.54, Amylase 55.7, Lipase 77.3 02/06/18 00:40: WBC 8.32, RBC 3.85 L, Hgb 12.6, Hct 35.2 L, MCV 91.4, MCH 32.7 H , MCHC 35.8 H, RDW Coeff of Alfie 11.4 L, Plt Count 269, Immature Gran % (Auto) 0.6, Neut % (Auto) 83.2, Lymph % (Auto) 10.7, [place] % (Auto) 5.3, Eos % (Auto) 0.1, Baso % (Auto) 0.1, Immature Gran # (Auto) 0.1, Neut # (Auto) 6.9, Lymph # ( Auto) 0.9, [place] # (Auto) 0.4, Eos # (Auto) 0.0, Baso # (Auto) 0.0 02/06/18 00:30: Urine Color Yellow, Urine Clarity Clear, Urine pH 7.0, Ur Specific [place] 1.010, Urine Protein Negative, Urine Glucose (UA) Negative, Urine Ketones Negative, Urine Blood Negative, Urine Nitrite Negative, Urine Bilirubin Negative, Urine Urobilinogen 0.2, Ur Leukocyte Esterase Negative 02/06/18 00:22: Puncture Site Rbrach, O2 Saturation 96.0, ABG pH 7.481 H, ABG pCO2 45.9 H, ABG pO2 78.0 L, ABG HCO3 34.3 H, ABG Total CO2 36 H, ABG Base Excess 11 H, Kleber Test +, FiO2 % 21.0 ASSESSMENT: 1. LEG EDEMA BILATERALLY, LEFT MORE THAN RIGHT. 2. HYPOKALEMIA. 3. HYPONATREMIA. 4. CONSTIPATION. PLAN: 1. IV NS with potassium 2. Elevate legs 3. Restrict fluid intake, 1500 cc daily 4. IV Lasix 5. Dulcolax suppository 6. 1/2 bottle of Mag Citrate Plan and coordination of the patient's care discussed in the presence of Cotton Sampler and nurse. CONDITION: Stable SCRIBED BY: GEETA CONCEPCION Survey Research Analyst scribed while in presence of service performed by Dr. FRANSICO BALLARD on 02/06/18 ([id number])
[2018-02-06] MEDS: NALOXEGOL OXALATE 12.5 MG PO SCH (12:00)
[2018-02-06] MEDS: SODIUM CHLORIDE 0.9%-KCL 40MEQ 1,000 ML IV SCH (12:01)
[2018-02-06] MEDS: PROTONIX PO SCH (20:35)
[2018-02-06] MEDS: NORVASC PO SCH (20:35)
[2018-02-06] MEDS: NORCO 10-325 PO PRN (20:36)
[2018-02-06] MEDS ORDERED: NON-FORMULARY MEDICATION (Amlodipine Besylate [Norvasc] 5 MG) PO SCH (21:00)
[2018-02-06] MEDS: RESTORIL PO PRN (21:46)
[2018-02-07] MEDS: SODIUM CHLORIDE 0.9%-KCL 40MEQ 1,000 ML IV SCH (00:51)
[2018-02-07] MEDS: PREDNISONE PO SCH (09:07)
[2018-02-07] MEDS: NEURONTIN PO SCH ×2 (10:02→21:03)
[2018-02-07] MEDS: CRESTOR PO SCH (10:02)
[2018-02-07] MEDS: COZAAR PO SCH (10:02)
[2018-02-07] MEDS: LASIX IVP SCH (10:04)
[2018-02-07] MEDS: LOVENOX SUBCUT SCH (10:09)
[2018-02-07] MEDS: NALOXEGOL OXALATE 12.5 MG PO SCH (10:15)
--- NOTE | 2018-02-07 10:23 | PCM.PROG ---
Attending Provider: ATTENDING PROVIDER: Dr. FRANSICO BALLARD This patient is seen with Suze Beltran, Nurse Practitioner. DATE OF SERVICE: 02/07/18 SUBJECTIVE: This 87 year old WHITE/ F was hospitalized 02/06/18. The patient is lying in bed resting comfortably. Leg edema significantly improved. Large bowel movement yesterday. REVIEW OF SYSTEMS: CONSTITUTIONAL: Weakness. No night sweats. No malaise, lethargy. No fever or chills. HEENT: Eyes: No visual changes. No eye pain. No eye discharge. ENT: No runny nose. No epistaxis. No sinus pain. No odynophagia. No congestion. RESPIRATORY: No cough, no congestion. No hemoptysis. No shortness of breath. CARDIOVASCULAR: No angina symptoms. No CHF symptoms. No atypical chest pain for CAD. No palpitations. No orthopnea.. GASTROINTESTINAL: No abdominal pain. No nausea or vomiting. No diarrhea or constipation. No hematemesis. No hematochezia. GENITOURINARY: No urgency. No frequency. No dysuria. No hematuria. No obstructive symptoms. No discharge. No pain. No significant abnormal bleeding. MUSCULOSKELETAL: No musculoskeletal pain; no joint swelling. NEUROLOGICAL: Awake, alert, oriented to time, place and person. No headache. No neck pain. No syncope. No seizures. No dizziness. PSYCHIATRIC: Not anxious. No depression. No suicidal thoughts. No homicidal thoughts. SKIN: No rash. No lesions. No wounds. ENDOCRINE: No unexplained weight loss. No weight gain. HEMATOLOGIC/LYMPHATIC: No anemia. No purpura. No petechiae. No prolonged or excessive bleeding. No palpable lymph nodes. PHYSICAL EXAMINATION: GENERAL: The patient is awake, alert and oriented, lying in bed in no distress. VITAL SIGNS: Temperature 97.8 F, Pulse 64, Respiratory Rate 16, BP 147/83, Pulse Ox 100% HEENT: Head normocephalic, atraumatic. Eyes: Extraocular muscles are intact. Pupils are equal, round and reactive to light and accommodation. Ears: No lesions. Nose appeared normal. Throat: No exudate or erythema. NECK: Supple. No JVD, no carotid bruit. No lymphadenopathy or thyromegaly. LUNGS: Diminished breath sounds. Clear to auscultation. Percussion note normal. Chest symmetrical. HEART: Grade I/ systolic murmur. S1, S2, no S3. No cyanosis or clubbing. No ascites. Pulses: Dorsalis pedis and posterior tibial pulses +1 to +2 both sides. ABDOMEN: Soft. Non-tender. Bowel sounds active. No CVA tenderness. No mass felt. EXTREMITIES: Trace bilateral extremity edema. Full range of motion of all extremities, equal. NEUROLOGIC: No focal deficit. Cranial nerves II through XII are grossly intact. No headache, no double vision or headache. SKIN: Not dry. Intact. Turgor-normal. LYMPHATIC: No palpable lymph nodes/no lymphedema. MUSCULOSKELETAL: Normal joints with no swelling. Muscle tone is normal. LAB REVIEW: 02/07/18 05:00 02/07/18 05:00 02/07/18 05:00: Sodium 127.0 L, Potassium 5.20 H, Chloride 90.0 L, Carbon Dioxide 33.0 H, Anion Gap 9.20, BUN 8.0, Creatinine 0.60, Estimated GFR (MDRD) 95.00, BUN/Creatinine Ratio 13.33, Glucose 94.0, Calcium 8.80, Total Bilirubin 0.50, AST 40.0 H, ALT 15.0, Alkaline Phosphatase 63.0, Total Protein 6.90, Albumin 4.00, Globulin 2.90, Albumin/Globulin Ratio 1.37 02/07/18 05:00: WBC 6.26, RBC 3.74 L, Hgb 12.2, Hct 35.2 L, MCV 94.1, MCH 32.6 H , MCHC 34.7, RDW Coeff of Alfie 11.6, Plt Count 276, Immature Gran % (Auto) 0.5, Neut % (Auto) 58.5, Lymph % (Auto) 32.1, [place] % (Auto) 8.1, Eos % (Auto) 0.5, Baso % (Auto) 0.3, Immature Gran # (Auto) 0.0, Neut # (Auto) 3.7, Lymph # (Auto ) 2.0, [place] # (Auto) 0.5, Eos # (Auto) 0.0, Baso # (Auto) 0.0 02/06/18 16:10: Potassium 4.08 ASSESSMENT: 1. LEG EDEMA BILATERALLY, LEFT MORE THAN RIGHT, IMPROVED. 2. HYPOKALEMIA. 3. HYPONATREMIA. 4. CONSTIPATION, RESOLVED. PLAN: 1. Stop IV fluids. 2. Lasix 40 mg p.o. tomorrow. 3. UA. Plan and coordination of the patient's care discussed in the presence of Social Work Case Manager and nurse. CONDITION: STABLE SCRIBED BY: GEETA CONCEPCION Still Cleaner scribed while in presence of service performed by Dr. Ballard/Suze Beltran APRN on 02/07/18 ([id number])
[2018-02-07] MEDS: NORCO 10-325 PO PRN (16:17)
[2018-02-07] MEDS: MS CONTIN PO PRN (19:50)
[2018-02-07] MEDS: PROTONIX PO SCH (20:14)
[2018-02-07] MEDS: NORVASC PO SCH (21:03)
[2018-02-07] MEDS: RESTORIL PO PRN (22:38)
[2018-02-08] MEDS: NORCO 10-325 PO PRN (00:31)
[2018-02-08 05:50] VITALS: BP 110/68; TEMP 96.5
[2018-02-08] MEDS ORDERED: LASIX TAB PO SCH (06:30)
--- NOTE | 2018-02-08 06:56 | HP ---
DATE OF SERVICE: 02/06/18 HISTORY OF PRESENT ILLNESS: This is an 87-year-old white female who has been seen multiple times in our office on Monday then again on Monday for leg edema, acute bronchitis and diarrhea. She had been put on Keflex 500 mg t.i.d. orally along with Prednisone 10 mg b.i.d. We placed her on Zaroxolyn 2.5 mg to take for three days straight and also increased her Lasix to 20 mg b.i.d. On Monday after being seen in the office, her leg edema had slightly improved, her cough had improved. 02 sat had increased at 92%. She still refused to be hospitalized so tonight she presents to the emergency room for constipation and states her legs are swollen. PAST MEDICAL HISTORY: Leg edema Hypertension Chronic back pain Neuropathy GERD Dyslipidemia History of constipation Chronic pain - she sees Pain Management at the [facility] Insomnia Anxiety Chronic lower extremity edema PAST SURGICAL HISTORY: Status post right hip replacement done by [facility] REVIEW OF SYSTEMS: CONSTITUTIONAL: Positive for weakness. No night sweats. No malaise, lethargy. No fever or chills. HEENT: Eyes: No visual changes. No eye pain. No eye discharge. ENT: No runny nose. No epistaxis. No sinus pain. No sore throat. No odynophagia. No ear pain. No congestion. RESPIRATORY: Positive for cough. No hemoptysis. No shortness of breath. CARDIOVASCULAR: Positive for leg edema. No angina symptoms. No CHF symptoms. No atypical chest pain for CAD. No palpitations. No PND. No orthopnea. GASTROINTESTINAL: No abdominal pain. No nausea or vomiting. No diarrhea or constipation. No hematemesis. No hematochezia. GENITOURINARY: No urgency. No frequency. No dysuria. No hematuria. No obstructive symptoms. No discharge. No pain. No significant abnormal bleeding. MUSCULOSKELETAL: No musculoskeletal pain. No joint swelling. No arthritis. NEUROLOGICAL: No headache. No neck pain. No syncope. No seizures. No dizziness. PSYCHIATRIC: Not anxious. No depression. No suicidal thoughts. No homicidal thoughts. SKIN: No rash. No lesions. No wounds. ENDOCRINE: No unexplained weight loss. No weight gain. HEMATOLOGIC/LYMPHATIC: No anemia. No purpura. No petechiae. No prolonged or excessive bleeding. No palpable lymph nodes. PERSONAL/FAMILY/SOCIAL HISTORY: She is a nonsmoker, lives at home with her . MEDICATIONS: (HOME) Pantoprazole 40 mg p.o. bedtime Gabapentin 300 mg one cap p.o. b.i.d. Crestor 10 mg p.o. daily Cozaar 100 mg p.o. daily Lasix 20 mg p.o. daily Norvasc 5 mg p.o. bedtime Colace one tab p.o. b.i.d. p.r.n. Movantik 12.5 mg pe p.o. daily Restoril 30 mg p.o. bedtime p.r.n. Zofran 4 mg p.o. t.i.d. p.r.n. Keflex 500 mg p.o. q.8hr MS Contin 15 mg p.o. q12h p.r.n. Hydrocodone/Acetaminophen 10-325 each p.o. b.i.d. p.r.n. Prednisone 10 mg p.o. b.i.d. with meal ALLERGIES: CELECOXIB, IODINATED CONTRAST, ORAL AND IV DYE PHYSICAL EXAMINATION: VITAL SIGNS: Temperature 98.4, heart rate 70, respirations 18, BP 124/73, pulse ox 93% on room air. HEENT: Head normocephalic, atraumatic. Eyes: Extraocular muscles are intact. Pupils are equal, round and reactive to light and accommodation. Ears: No lesions. Nose appeared normal. Throat: No exudate or erythema. NECK: Supple. No JVD, no carotid bruit. No lymphadenopathy or thyromegaly. LUNGS: Diminished breath sounds bilaterally. Clear to auscultation. Percussion note normal. Chest symmetrical. HEART: Regular heart rate. S1, S2, no S3. No murmurs. No cyanosis or clubbing. No ascites. Pulses: Dorsalis pedis and posterior tibial pulses +1 to +2 bilaterally. ABDOMEN: Soft. Nontender. Bowel sounds active. No CVA tenderness. No mass felt. EXTREMITIES: +1 leg edema right greater than left. Full range of motion of all extremities, equal. NEUROLOGIC: Alert and oriented times three. No focal deficit. Cranial nerves II through XII are grossly intact. No headache, no double vision or headache. SKIN: Not dry. Intact. Turgor - normal. LYMPHATIC: No palpable lymph nodes/no lymphedema. MUSCULOSKELETAL: Normal joints with no swelling. Muscle tone is normal. White count 8.3, hemoglobin 12.6, hematocrit 35.2, platelets 269. Sodium 121, potassium 3.1, BUN 6.8, creatinine 0.6, glucose 160. ABGs on room air: 02 sat 96, pH 7.481, pc02 45.9, p02 78, bicarb 34.3, total c02 36, base excess of 11. Urine is totally normal. AST 47, ALT 17, total CK 78, alkaline phosphatase 81, troponin less than 0.01, total protein 7.5, BNP 680. TSH 1.08. ASSESSMENT: 1. ACUTE HYPONATREMIA 2. LEG EDEMA 3. ACUTE BRONCHITIS 4. CHRONIC BACK PAIN PLAN: 1. We will admit. 2. Routine telemetry orders. 3. CBC, CMP daily. 4. Chest x-ray. 5. UA. 6. IV fluids NS with 40 potassium at 83 cc/hr. 7. Lasix 40 mg IV daily. 8. Hold oral Lasix. 9. Continue Prednisone 10 mg p.o. b.i.d. 10. 1500 cc fluid restriction. 11. ADA diet. 12. Will follow closely. 13. Elevate legs. TIME SPENT: More than 70 minutes. MTDD
[2018-02-08] MEDS ORDERED: DECADRON 4 MG/ML SDV IM STA (08:14)
[2018-02-08] MEDS ORDERED: HUMULIN R ONE ×2 (08:31→08:32)
[2018-02-08] MEDS: CRESTOR PO SCH (08:49)
[2018-02-08] MEDS: NEURONTIN PO SCH (08:49)
[2018-02-08] MEDS: COZAAR PO SCH (08:49)
--- NOTE | 2018-02-08 08:49 | PCM.PROG ---
Attending Provider: ATTENDING PROVIDER: Dr. FRANSICO BALLARD This patient is seen with Suze Beltran, Nurse Practitioner. DATE OF SERVICE: 02/08/18 SUBJECTIVE: This 87 year old WHITE/ F was hospitalized 02/06/18. The patient is resting comfortably. She did not sleep well last night, seems groggy this morning. We feel she is being overmedicated by pain management. REVIEW OF SYSTEMS: CONSTITUTIONAL: No night sweats. No fatigue, malaise, lethargy. No fever or chills. HEENT: Eyes: No visual changes. No eye pain. No eye discharge. ENT: No runny nose. No epistaxis. No sinus pain. No odynophagia. No congestion. RESPIRATORY: No cough, no congestion. No hemoptysis. No shortness of breath. CARDIOVASCULAR: No angina symptoms. No CHF symptoms. No atypical chest pain for CAD. No palpitations. No orthopnea.. GASTROINTESTINAL: No abdominal pain. No nausea or vomiting. No diarrhea or constipation. No hematemesis. No hematochezia. GENITOURINARY: No urgency. No frequency. No dysuria. No hematuria. No obstructive symptoms. No discharge. No pain. No significant abnormal bleeding. MUSCULOSKELETAL: Generalized pain. NEUROLOGICAL: Groggy; oriented to time, place and person. No headache. No neck pain. No syncope. No seizures. No dizziness. PSYCHIATRIC: Not anxious. No depression. No suicidal thoughts. No homicidal thoughts. SKIN: No rash. No lesions. No wounds. ENDOCRINE: No unexplained weight loss. No weight gain. HEMATOLOGIC/LYMPHATIC: No anemia. No purpura. No petechiae. No prolonged or excessive bleeding. No palpable lymph nodes. PHYSICAL EXAMINATION: GENERAL: The patient is awake but groggy, lying in bed in no distress. VITAL SIGNS: Temperature 96.5 F, Pulse 51, Respiratory Rate 18, BP 110/68, Pulse Ox 96% HEENT: Head normocephalic, atraumatic. Eyes: Extraocular muscles are intact. Pupils are equal, round and reactive to light and accommodation. Ears: No lesions. Nose appeared normal. Throat: No exudate or erythema. NECK: Supple. No JVD, no carotid bruit. No lymphadenopathy or thyromegaly. LUNGS: Diminished breath sounds. Clear to auscultation. Percussion note normal. Chest symmetrical. HEART: S1, S2, no S3. No murmurs. No cyanosis or clubbing. No ascites. Pulses: Dorsalis pedis and posterior tibial pulses +1 to +2 both sides. ABDOMEN: Soft. Non-tender. Bowel sounds active. No CVA tenderness. No mass felt. EXTREMITIES: Trace bilateral lower extremity edema. Full range of motion of all extremities, equal. NEUROLOGIC: No focal deficit. Cranial nerves II through XII are grossly intact. No headache, no double vision or headache. SKIN: Not dry. Intact. Turgor-normal. LYMPHATIC: No palpable lymph nodes/no lymphedema. MUSCULOSKELETAL: Normal joints with no swelling. Muscle tone is normal. LAB REVIEW: 02/08/18 04:10 02/08/18 04:10 02/08/18 04:10: Sodium 123.9 L, Potassium 4.26, Chloride 83.7 L, Carbon Dioxide 35.8 H, Anion Gap 8.66, BUN 10.9, Creatinine 0.60, Estimated GFR (MDRD) 95.00, BUN/Creatinine Ratio 18.16, Glucose 87.2, Calcium 8.58, Total Bilirubin 0.37, AST 42.6 H, ALT 16.0, Alkaline Phosphatase 67.1, Total Protein 5.99 L, Albumin 3.55, Globulin 2.44, Albumin/Globulin Ratio 1.45 02/08/18 04:10: WBC 7.47, RBC 3.48 L, Hgb 11.4 L, Hct 32.8 L, MCV 94.3, MCH 32.8 H, MCHC 34.8, RDW Coeff of Alfie 11.7, Plt Count 258, Immature Gran % (Auto) 0.8, Neut % (Auto) 53.8, Lymph % (Auto) 35.2, [place] % (Auto) 8.2, Eos % (Auto) 1.5, Baso % (Auto) 0.5, Immature Gran # (Auto) 0.1, Neut # (Auto) 4.0, Lymph # ( Auto) 2.6, [place] # (Auto) 0.6, Eos # (Auto) 0.1, Baso # (Auto) 0.0 ASSESSMENT: 1. HYPONATREMIA IMPROVED 2. LEG EDEMA BILATERALLY- LEFT MORE THAN RIGHT, IMPROVED. 2. HYPOKALEMIA, RESOLVED 4. CONSTIPATION, RESOLVED. PLAN: 1. D/C home. 2. Lasix 20 mg daily. 3. 1500 cc fluid restriction. 4. CBC, CMP Monday in the office. 5. Potassium 10 mEq daily. 6. To be seen in the office on Monday. 7. Keep legs elevated. 8. The has been informed to decrease pain medication. Plan and coordination of the patient's care discussed in the presence of [employer] and nurse. CONDITION: Stable SCRIBED BY: GEETA CONCEPCION C[employer] Finisher Helper scribed while in presence of service performed by Dr. Ballard/Suze Beltran APRN on 02/08/18 ([id number])
[2018-02-08] MEDS: MS CONTIN PO PRN (08:50)
[2018-02-08] MEDS: NALOXEGOL OXALATE 12.5 MG PO SCH (08:51)
[2018-02-08] MEDS: LOVENOX SUBCUT SCH (08:57)
--- NOTE | 2018-02-08 09:41 | CM.DICTOOL ---
ADMISSION: 02/06/18 01:41 DISCHARGE: FEBRUARY 08, 2018 DATE OF SERVICE: 02/08/18 FINAL DIAGNOSIS LEG EDEMA, BILATERALLY CONSTIPATION, RESOLVED HYPONATREMIA HYPOKALEMIA, RESOLVED HYPERTENSION DYSLIPIDEMIA ASTHMA GERD ARTHRITIS CHRONIC BACK PAIN (PAIN MANAGEMENT, DR. PARSONS) BILATERAL HIP REPLACEMENT CATARACT EXTRACTION, BILATERAL ECHOCARDIOGRAM (2016) LVEF 40-45% LVH WITH ENLARGED LEFT ATRIAL CAVITY HYPOKINETIC LEFT VENTRICLE PFT (MAR 2017) MILD RESTRICTIVE LUNG DISEASE LAST VITALS Temp Pulse Resp BP Pulse Ox 96.5 F L 51 L 18 110/68 96 02/08/18 05:49 02/08/18 05:49 02/08/18 05:49 02/08/18 05:49 02/08/18 05:49 TAKE THESE MEDICATIONS AT HOME Hydrocodone Bitart/Acetaminophen ([place] 10-325) 1 tab PO BID PRN PRN Reason: MODERATE PAIN Last Admin: 02/08/18 00:31 Dose: 1 tab Amlodipine Besylate (Norvasc) 5 mg PO BEDTIME [facility] Last Admin: 02/07/18 21:03 Dose: 5 mg Docusate Sodium (Colace) 100 mg PO BID PRN PRN Reason: Constipation Furosemide (Lasix Tab) 20 mg PO QDAC [facility] Last Admin: 02/08/18 06:29 Dose: 40 mg Gabapentin (Neurontin) 300 mg PO BID [facility] Last Admin: 02/07/18 21:03 Dose: 300 mg Losartan Potassium (Cozaar) 100 mg PO DAILY [facility] Last Admin: 02/07/18 10:02 Dose: 100 mg Morphine Sulfate (Ms Contin) 15 mg PO Q12HR PRN PRN Reason: Severe Pain Last Admin: 02/07/18 19:50 Dose: 15 mg Non-Formulary Medication (Naloxegol Oxalate [Movantik]) 12.5 mg pe PO DAILY [facility] Last Admin: 02/07/18 10:15 Dose: 12.5 mg pe Ondansetron HCl (Zofran Tab) 4 mg PO TID PRN PRN Reason: Nausea / Vomiting Last Admin: 02/06/18 18:38 Dose: 4 mg Pantoprazole Sodium (Protonix) 40 mg PO BEDTIME [facility] Last Admin: 02/07/18 20:14 Dose: 40 mg Rosuvastatin Calcium (Crestor) 10 mg PO DAILY [facility] Last Admin: 02/07/18 10:02 Dose: 10 mg Temazepam (Restoril) 30 mg PO BEDTIME PRN PRN Reason: Insomnia Last Admin: 02/07/18 22:38 Dose: 30 mg ALLERGIES celecoxib [From Celebrex] Adverse Reaction (Intermediate, Verified 02/06/18 01: 11) Rash Iodinated Contrast- Oral and IV Dye [Iodinated Contrast Media - IV Dye] Adverse Reaction (Verified 02/06/18 01:11) DISCONTINUED MEDICATIONS Keflex Prednisone NEW PRESCRIPTIONS: K-tab 10 meq daily SMOKING: Not Applicable DISEASE SPECIFIC EDUCATION: Elevate legs 1500 ml fluid restriction Medications, use of pain medications Appointment LAB REVIEW: 02/08/18 04:10 02/08/18 04:10 02/08/18 04:10: Sodium 123.9 L, Potassium 4.26, Chloride 83.7 L, Carbon Dioxide 35.8 H, Anion Gap 8.66, BUN 10.9, Creatinine 0.60, Estimated GFR (MDRD) 95.00, BUN/Creatinine Ratio 18.16, Glucose 87.2, Calcium 8.58, Total Bilirubin 0.37, AST 42.6 H, ALT 16.0, Alkaline Phosphatase 67.1, Total Protein 5.99 L, Albumin 3.55, Globulin 2.44, Albumin/Globulin Ratio 1.45 02/08/18 04:10: WBC 7.47, RBC 3.48 L, Hgb 11.4 L, Hct 32.8 L, MCV 94.3, MCH 32.8 H, MCHC 34.8, RDW Coeff of Alfie 11.7, Plt Count 258, Immature Gran % (Auto) 0.8, Neut % (Auto) 53.8, Lymph % (Auto) 35.2, [place] % (Auto) 8.2, Eos % (Auto) 1.5, Baso % (Auto) 0.5, Immature Gran # (Auto) 0.1, Neut # (Auto) 4.0, Lymph # ( Auto) 2.6, [place] # (Auto) 0.6, Eos # (Auto) 0.1, Baso # (Auto) 0.0 PLAN: Discharge home Diet: Regular 1500 ml fluid restriction Activity: Gradually resume as tolerated Elevate the lower extremities above the level of the hips when at rest Continue medications as listed on nursing discharge information sheet Avoid taking [place] and MS Contin at the same time; discuss pain medications and possible decrease with Dr. Parsons An appointment is scheduled with Dr. Joseph/Suze Beltran APRN on February 12 at 10:30 labs to be done in office Code Status: Full Code Mrs. Hall is alert and oriented x 3. She is independent with Activities of Daily Living. She requires stand by assistance of one staff member for transfers to the [facility] or chair. She is ambulatory with use of a rolling walker during her hospital stay. She reports use of a rolling walker or electric scooter at home. Meal intakes are good at 100%. She is continent of bladder and bowel. Depends undergarments are worn by the patient due to urinary frequency and dribbling. Last bowel movement was 02-07-2018. Skin is intact and free of decubitus ulcers. Ecchymosis is noted to both arms. Michael Joseph MD [facility]
[2018-02-08] MEDS ORDERED: SYMBICORT 160-4.5 MCG INHALER IH ONE (10:24)
--- NOTE | 2018-02-12 13:42 | PN ---
DISCHARGE NOTE DATE OF SERVICE: 02/08/18 SUBJECTIVE: The patient is doing. Her sodium is 124 and on admission was 121. Her mental status is normal. She feels drowsy at times because of taking [place] and MS Contin together. It was given by Pain Management. The was present in the room and I strongly advised for her to back off one of them and to use just one a day for each one of them and maybe get off of [place] and continue MS Contin, but she should not be taking both twice a day. Both are agreeable to that. PHYSICAL EXAMINATION: HEENT: Head normocephalic, atraumatic. Eyes: Extraocular muscles are intact. Pupils are equal, round and reactive to light and accommodation. Ears: No lesions. Nose appeared normal. Throat: No exudate or erythema. NECK: Supple. No JVD, no carotid bruit. No lymphadenopathy or thyromegaly. LUNGS: Clear to auscultation. Percussion note normal. Chest symmetrical. HEART: S1, S2, no S3. No murmurs. No cyanosis or clubbing. No ascites. Pulses: Dorsalis pedis and posterior tibial pulses +1 to +2 both sides. ABDOMEN: Soft. Nontender. Bowel sounds active. No CVA tenderness. No mass felt. EXTREMITIES: No leg edema. Full range of motion of all extremities, equal. NEUROLOGIC: No focal deficit. Cranial nerves II through XII are grossly intact. No headache, no double vision or headache. SKIN: Not dry. Intact. Turgor - normal. LYMPHATIC: No palpable lymph nodes/no lymphedema. MUSCULOSKELETAL: Normal joints with no swelling. Muscle tone is normal. CONDITION: Stable. The patient was seen and examined with the nurse practitioner. TIME SPENT: More than 30 minutes. Plan and coordination of the patient's care discussed in the presence of nurse. MOUSTAPHA
--- NOTE | 2018-02-12 13:44 | PN ---
BILLING ADMISSION DAY LEVEL 5 02/07/18 INTERMEDIATE 02/08/18 DISCHARGE MTDD
--- NOTE | 2018-02-12 15:48 | DS ---
DATE OF SERVICE: 02/08/18 FINAL DIAGNOSIS: 1. LEG EDEMA, BILATERALLY 2. CONSTIPATION, RESOLVED 3. HYPONATREMIA 4. HYPOKALEMIA, RESOLVED 5. HYPERTENSION 6. DYSLIPIDEMIA 7. ASTHMA 8. GERD 9. ARTHRITIS 10. CHRONIC BACK PAIN (PAIN MANAGEMENT, DR. PARSONS) 11. BILATERAL HIP REPLACEMENT 12. CATARACT EXTRACTION, BILATERAL 13. ECHOCARDIOGRAM MARCH 2017-LVEF 4-45%, LVH WITH ENLARGED LEFT ATRIAL CAVITY, HYPOKINETIC LEFT VENTRICLE 14. PULMONARY FUNCTION TEST MARCH 2017 - MILD RESTRICTIVE LUNG DISEASE VITALS AT DISCHARGE: Temperature 96.5, pulse 51, respiratory rate 18, blood pressure 110/68, pulse ox 96%. LABS AT DISCHARGE: Sodium 123.9. potassium 4.26, chloride 83.7, carbon dioxide 35.8, AST 42.6, total protein 5.99, WBC 7.47, RBC 3.48, hemoglobin 11.4, hematocrit 32.8, MCV 94.3, MCH 32.8. DISCHARGE INSTRUCTIONS: 1. Discharge home. 2. An appointment is scheduled with Dr. Joseph/Suze Beltran APRN on February 12 at 10:30 a.m. Labs to be done in the office. MEDICATIONS AT DISCHARGE: Continue medications as listed on the nursing discharge information sheet Hydrocodone/APAP ([place] 10/325 mg) one tab p.o. twice daily prn Amlodipine 5 mg p.o. bedtime Colace 100 mg twice daily prn Lasix 20 mg daily Gabapentin 300 mg twice daily Cozaar 100 mg p.o. daily MS Contin 15 mg every 12 hours prn Movantik 12.5 mg p.o. daily Zofran 4 mg three times daily prn Protonix 40 mg at bedtime Crestor 10 mg daily Restoril 30 mg at bedtime prn NOTE: Avoid taking [place] and MS Contin at the same time. discuss pain medications and possible decrease with Dr. Parsons. ALLERGIES: Celebrex, Oral Iodinated contrast DISCONTINUED MEDICATIONS: Keflex and Prednisone NEW PRESCRIPTIONS: K-tab 10 mEq daily DIET INSTRUCTIONS: Regular, 1500 ml fluid restriction. ACTIVITY: Gradually resume as tolerated. Elevate the lower extremities above the level of the hips when at rest. SMOKING: NA DISEASE SPECIFIC EDUCATION: Elevate legs, 1500 ml fluid restriction, medications, use of pain medications and appointment. STATUS: Full code. HOSPITAL COURSE: 87 year old white female who had been treated in the office as an outpatient with worsening leg edema, cough, congestion, diarrhea and then constipation who had refused hospitalization on her two previous visits. She was seen in the office on Monday morning and was weak. Oxygen saturation was 91 %. She is still coughing. She had not lost any weight despite being of Zaroxolyn for the past three days, as well as an increase 40 mg of p.o. Lasix. Her left leg was not any better. Both legs swollen with the left greater than the right. She came to the emergency room with nausea, fatigue, worsening leg edema, weak. Her sodium was significantly low on admission at 121. Kidney function was elevated showing mild dehydration. She stated that she was constipated with nausea. Again, her legs were edematous. She was admitted and placed on Lasix 40 mg IV daily and instructed to keep her legs elevated. Her potassium was significantly low at 2.9 on admission. She was placed on 40 mEq of potassium three times daily along with 20 mEq in normal saline at 75 cc per hour. Within 24 hours her sodium had improved somewhat at 127 and her potassium was normal, which was discontinued in the IV yesterday, as well as oral. She was at 5.2 yesterday. Today on the day of discharge the potassium is 4.2. She will go home on 10 mEq of potassium daily. Kidney function is back to normal today. IV fluids were discontinued yesterday. Her sodium was 127 and today it is back down to 124. She was placed on a 1500 cc fluid restriction in the hospital and we will continue to encourage her not to drink too many fluids while at home. Information has been provided regarding the need to keep her legs elevated, as her leg edema did significantly improve within 24 hours. She had trace edema yesterday and no edema today with wrinkling in the lower extremities. There was no evidence of cellulitis. As she had a rather large bowel movement yesterday, but still somewhat weak today. She is more alert. However, we do believe that she is being overmedicated by Pain Management. She is on both [place] and MS Contin. This is discussed with both she and her and that they needed to decrease her pain medication at home and then they needed to have this conversation with Dr. Parsons as well. An echo was performed recently this year, so Dr. Joseph did not perform another echo. There was no evidence of CHF, just dependent leg edema. Today she is discharged in stable condition. Temperature 96.5, heart rate 51, respirations 18, blood pressure 110/68, pulse ox 96%. She has gotten stronger. She is to continue with her fluid restriction. Keep her legs elevated. We will follow up with her next week in the office. TIME SPENT: More than 60 minutes. MOUSTAPHA
== END 2018-02-08 11:15 | disposition home or self-care (01) | DRG 948 ==
LOC: ED 00:04 → MEDSURG B 01:41
PROVIDERS: ADMIT Internal Medicine; ATTEND Internal Medicine
DX: R60.9 Edema, unspecified (principal); E87.1 Hypo-osmolality and hyponatremia; E87.6 Hypokalemia; E78.5 Hyperlipidemia, unspecified; I50.9 Heart failure, unspecified; I10 Essential (primary) hypertension; M19.90 Unspecified osteoarthritis, unspecified site; M54.9 Dorsalgia, unspecified; J20.9 Acute bronchitis, unspecified; J45.909 Unspecified asthma, uncomplicated; K21.9 Gastro-esophageal reflux disease without esophagitis
CPT/HCPCS: 36415; 80053; 81001; 82150; 82550; 82803; 83690; 83880; 84132; 84443; 84484; 85025; 93005; 93010; 96374; 99223; 99232; 99239; 99285

== ENCOUNTER 2018-07-03 17:25 | Inpatient (IN) ==
--- NOTE | 2018-07-03 19:33 | CT ---
Exam: CT scan of the thorax without contrast. Date: 07/03/2018. Comparison: 01/24/2017. HISTORY: Cough and dyspnea. TECHNIQUE: Helical scan of the thorax was performed without contrast. FINDINGS: The thoracic inlet and axillary regions are normal. No suspicious mediastinal adenopathy is seen and granulomatous calcifications present. The caliber of the thoracic aorta and cardiac chuck bers are normal. Vascular calcifications are incidentally noted along with coronary artery calcifica tion. The spleen and liver have a normal uniform enhancement. The stomach, pancreas and adrenal gla nds are normal. The kidneys appear normal. The body of a dorsal column stimulation device is implanted in the soft tissues over the posterior ri ght lower back with electrodes extending into the thoracic spine to the level of T5-T8. Degenerative changes present in the glenohumeral joints. No acute osseous abnormalities are observed. Evaluation at lung window settings demonstrates a 0.9 x 0.6 cm noncalcified nodule in the posterior s egment of the right upper lobe on image 25, and a 0.7 cm similar noncalcified nodule in the same loba r segment on coronal image 52.. Granulomatous calcifications are also present with atelectasis along the diaphragmatic surface in the left lower lobe. The tracheobronchial tree is patent. Impression: There is atelectasis along the diaphragmatic surface in the left lower lobe; recommend c orrelation to exclude pneumonia. There are two noncalcified nodules in the posterior segment right upper lobe that measure up to 0.9 a nd 0.7 cm, respectively that are new from the preceding study. These could represent fluid-filled al veoli and pneumonia; alternatively a developing neoplasm is not excluded. A follow-up chest CT in 3 months would be recommended to document stability or resolution. Vascular and coronary artery calcifications.
--- NOTE | 2018-07-03 19:41 | ED.PDOC ---
General ED Provider: Dr. VLADIMIR BA-ER Chief Complaint: Cough Stated Complaint: im not getting any better Time Seen by Physician: 17:30 Mode of Arrival: Wheelchair Information Source: Patient Exam Limitations: No limitations Primary Care Provider: VLADIMIR BA Nursing and Triage Documentation Reviewed and Agree: Yes Does patient meet sepsis criteria?: No System Inflammatory Response Syndrome: Not Applicable Sepsis Protocol: For patient's 13 years and over: Temp is 96.8 and below OR 101 and greater Pulse >90 BPM Resp >20/minute Acutely Altered Mental Status Are patient's symptoms suggestive of a new infection, such as: -Pneumonia -Skin, Soft Tissue -Endocarditis -UTI -Bone, Joint Infection -Implantable Device -Acute Abdominal Infection -Wound Infection -Meningitis -Blood Stream Catheter Infection -Unknown Respiratory Complaint Exam - Respiratory Complaint/Exam Onset/Duration: one week Symptoms Are: Still present Timing: Constant Initial Severity: Mild Current Severity: Mild Location: Chest Character: Reports: Non-productive cough Aggravating: Reports: URI Alleviating: Reports: Spontaneous resolution Associated Signs and Symptoms: Reports: Dyspnea, URI, Nasal congestion. Denies : Rapid breathing History of Healthcare-Acquired Pneumonia: No Home Oxygen Use: No Recent Stress Test: No Recent Echo/LV Function: No Current Antibiotic Use: Yes Current Asthma Medication Use: No Respiratory Distress: None Inadequate Respiratory Effort: No Dysphagia Present: No Stridor Present: No JVD Present: No Accessory Muscle Use: No Retractions: Not Present Diminished Breath Sounds: No Sinus Tenderness: None Grunting Respirations: No Kussmaul Respirations: No Differential Diagnoses: Pneumonia Non-Traumatic Chest Pain Syncope: EKG Performed Review of Systems - Review Of Systems Constitutional: Reports: Fever, Weakness Eyes: Reports: No symptoms Ears, Nose, Mouth, Throat: Reports: No symptoms Respiratory: Reports: Cough, Short of air Cardiac: Reports: No symptoms GI: Reports: No symptoms : Reports: No symptoms Musculoskeletal: Reports: No symptoms Skin: Reports: No symptoms Neurological: Reports: No symptoms Endocrine: Reports: No symptoms Hematologic/Lymphatic: Reports: No symptoms All Other Systems: Reviewed and Negative Past Medical History - Past Medical History Previously Healthy: No Endocrine: Reports: Unknown Cardiovascular: Reports: Unknown Respiratory: Reports: Unknown Hematological: Reports: Unknown Gastrointestinal: Reports: Unknown Genitourinary: Reports: Unknown Neuro/Psych: Reports: Unknown Musculoskeletal: Reports: Unknown Cancer: Reports: Unknown Last Menstrual Period: menopause - Surgical History General Surgical History: Reports: Unknown - Family History Family History: Reports: Unknown - Social History Smoking Status: Never smoker Hx Substance Use: No Alcohol Screening: None Physical Exam - Physical Exam Appearance: Well-appearing, No pain distress, Well-nourished Eyes: JENNA, EOMI, Conjunctiva clear ENT: Ears normal, Nose normal, Oropharynx normal Neck: Supple Respiratory: Crackles, Rhonchi Cardiovascular: RRR, Pulses normal, No rub, No murmur GI/: Soft, Nontender, No masses, Bowel sounds normal, No Organomegaly Musculoskeletal: Normal strength, ROM intact, No edema, No calf tenderness Skin: Warm, Dry, Normal color Neurological: Sensation intact Psychiatric: Affect appropriate, Mood appropriate, Anxious Interpretation - Radiology Interpretation Radiology Interpretation By: Radiologist Radiology Results: Positive Exam Interpreted: CT Scan - EKG Interpretation Time of EKG #1: 19:42 Rate: Normal Rhythm: Sinus Ectopy: None [place]: NL ST Segment: Normal Interpretation: nsr Physician Notification - Case Discussed Physician Notified: dr whalen Time of Notification: 19:42 Critical Care Note - Critical Care Note Total Time (mins): 0 Course - Course Hematology/Chemistry: 07/03/18 18:55 07/03/18 18:55 Orders, Labs, Meds: Lab Review 07/03/18 07/03/18 07/03/18 18:25 18:35 18:55 WBC 7.55 RBC 4.07 L Hgb 13.0 Hct 39.4 MCV 96.8 MCH 31.9 H MCHC 33.0 RDW Coeff of Alfie 12.2 Plt Count 259 Immature Gran % (Auto) 0.4 Neut % (Auto) 78.9 Lymph % (Auto) 12.8 [place] % (Auto) 7.2 Eos % (Auto) 0.4 Baso % (Auto) 0.3 Immature Gran # (Auto) 0.0 Neut # (Auto) 6.0 Lymph # (Auto) 1.0 [place] # (Auto) 0.5 Eos # (Auto) 0.0 Baso # (Auto) 0.0 Puncture Site Rb O2 Saturation 93.0 L ABG pH 7.421 ABG pCO2 45.3 H ABG pO2 68.0 L ABG HCO3 29.5 H ABG Total CO2 31 H ABG Base Excess 5 H FiO2 % 21.0 Sodium Potassium Chloride Carbon Dioxide Anion Gap BUN Creatinine Estimated GFR (MDRD) BUN/Creatinine Ratio Glucose Calcium Total Bilirubin AST ALT Alkaline Phosphatase Total Protein Albumin Globulin Albumin/Globulin Ratio Influ A Molecular Assay Negative by naat Influ B Molecular Assay Negative by naat 07/03/18 18:55 WBC RBC Hgb Hct MCV MCH MCHC RDW Coeff of Alfie Plt Count Immature Gran % (Auto) Neut % (Auto) Lymph % (Auto) [place] % (Auto) Eos % (Auto) Baso % (Auto) Immature Gran # (Auto) Neut # (Auto) Lymph # (Auto) [place] # (Auto) Eos # (Auto) Baso # (Auto) Puncture Site O2 Saturation ABG pH ABG pCO2 ABG pO2 ABG HCO3 ABG Total CO2 ABG Base Excess FiO2 % Sodium 124.9 L Potassium 4.12 Chloride 89.3 L Carbon Dioxide 33.9 H Anion Gap 5.82 BUN 7.0 Creatinine 0.59 L Estimated GFR (MDRD) 96.00 BUN/Creatinine Ratio 11.86 Glucose 114.7 H Calcium 9.13 Total Bilirubin 0.39 AST 35.6 ALT 17.6 Alkaline Phosphatase 96.4 Total Protein 7.36 Albumin 4.31 Globulin 3.05 Albumin/Globulin Ratio 1.41 Influ A Molecular Assay Influ B Molecular Assay Orders Category Date Time Status ABG DRAW REQUEST Stat CARDIO 07/03/18 18:36 Completed EKG-(ED ONLY) Stat CARDIO 07/03/18 18:35 Completed ED INSTALL TECHNICIAN APPLIED .ONCE EMERGENCY 07/03/18 18:35 Active ABG Stat LAB 07/03/18 18:35 Completed BLOOD CULTURE (ED ONLY) Stat LAB 07/03/18 18:55 Received CBC W/ AUTO DIFF Stat LAB 07/03/18 18:55 Completed COMPREHENSIVE METABOLIC PANEL Stat LAB 07/03/18 18:55 Completed FLU A & B MOLECULAR [FLU A/B MOLECULAR] Stat LAB 07/03/18 18:25 Completed MOLECULAR GROUP A STREP Stat LAB 07/03/18 18:[address] CHEST W/O CONTRAST Stat RADS 07/03/18 18:36 Completed Vital Signs: Temp Pulse Resp BP Pulse Ox 07/03/18 17:26 99.3 F 103 H 20 137/79 95 Departure - Departure Time of Disposition: 19:42 Disposition: ADMITTED INPATIENT Discharge Problem: Pneumonia Qualifiers: Pneumonia type: due to unspecified organism Laterality: unspecified laterality Lung location: unspecified part of lung Qualified Code(s): J18.9 - Pneumonia, unspecified organism Instructions: Pneumonitis (ED) Condition: Stable Pt referred to PMD for follow-up: No IPMP verified?: No Allergies/Adverse Reactions: Allergies celecoxib [From Celebrex] Adverse Reaction (Intermediate, Verified 02/06/18 01: 11) Rash Iodinated Contrast- Oral and IV Dye [Iodinated Contrast Media - IV Dye] Adverse Reaction (Verified 02/06/18 01:11) Home Medications: Ambulatory Orders Gabapentin 1 cap PO BID 07/17/14 Pantoprazole Sodium 40 mg PO BEDTIME 07/17/14 Losartan Potassium [Cozaar] 100 mg PO DAILY 08/18/14 Rosuvastatin Calcium [Crestor] 10 mg PO DAILY 08/18/14 Amlodipine Besylate [Norvasc] 5 mg PO BEDTIME 10/07/14 Furosemide [Lasix] 20 mg PO DAILY 10/07/14 Docusate Sodium [Colace] 1 tab PO BID PRN 01/24/17 Hydrocodone/Acetaminophen [Hydrocodon-Acetaminophn 10-325] 10 - 325 each PO BID PRN 02/06/18 Morphine Sulfate [Ms Contin] 15 mg PO Q12HR PRN 02/06/18 Naloxegol Oxalate [Movantik] 12.5 mg pe PO DAILY 02/06/18 Ondansetron HCl [Zofran] 4 mg PO TID PRN 02/06/18 Temazepam [Restoril] 30 mg PO BEDTIME PRN 02/06/18 Potassium Chloride [K-Tab ER] 10 meq PO DAILY #30 tablet.er 02/08/18 Disposition Discussed With: Patient, Family
[2018-07-03] MEDS ORDERED: TYLENOL PO PRN (19:43)
[2018-07-03] MEDS ORDERED: ZOFRAN TAB PO PRN (19:46)
[2018-07-03] MEDS ORDERED: NON-FORMULARY MEDICATION (Temazepam [Restoril] 30 MG) PO PRN (19:46)
[2018-07-03] MEDS ORDERED: COLACE PO PRN (19:46)
[2018-07-03] MEDS ORDERED: ALBUTEROL 0.042% NEB NEB PRN (19:46)
[2018-07-03] MEDS ORDERED: MS CONTIN PO PRN (19:46)
[2018-07-03] MEDS ORDERED: ROCEPHIN ONE (20:38)
[2018-07-03] MEDS: ROCEPHIN 1 GM in SODIUM CHLORIDE 50 ML IV SCH (20:45)
[2018-07-03] MEDS ORDERED: NON-FORMULARY MEDICATION (Amlodipine Besylate [Norvasc] 5 MG) PO SCH (21:00)
[2018-07-04] MEDS ORDERED: NORVASC ONE (00:56)
[2018-07-04] MEDS ORDERED: RESTORIL ONE (00:56)
[2018-07-04] MEDS: NEURONTIN PO SCH ×3 (01:08→20:45)
[2018-07-04] MEDS: SOLU-MEDROL 40 MG IVP SCH ×2 (01:09→02:58)
[2018-07-04] MEDS: DOXY-100 100 MG in SODIUM CHLORIDE 100 ML IV SCH ×4 (01:09→20:41)
[2018-07-04] MEDS: SODIUM CHLORIDE 1,000 ML IV SCH ×2 (01:09→22:20)
[2018-07-04] MEDS: PROTONIX PO SCH ×2 (01:09→20:45)
[2018-07-04 03:11] VITALS: BMI 28.5
[2018-07-04] MEDS: MICRO-K CAP PO SCH (08:54)
[2018-07-04] MEDS: LASIX TAB PO SCH (08:55)
[2018-07-04] MEDS: COZAAR PO SCH (08:55)
[2018-07-04] MEDS: CRESTOR PO SCH (08:55)
[2018-07-04] MEDS: LOVENOX SUBCUT SCH (08:58)
[2018-07-04] MEDS ORDERED: NON-FORMULARY MEDICATION (Potassium Chloride [K-Tab Er] 10 MEQ) PO SCH (09:00)
[2018-07-04] MEDS: NALOXEGOL OXALATE 12.5 MG PO SCH (09:01)
--- NOTE | 2018-07-04 09:33 | PCM.PROG ---
Attending Provider: ATTENDING PROVIDER: Dr. FRANSICO BALLARD This patient is seen with Suze Beltran, Nurse Practitioner. DATE OF SERVICE: 07/04/18 SUBJECTIVE: This 87 year old WHITE/ F was hospitalized 07/03/18. The patient is lying in bed, resting comfortably. The patient is still coughing, having urinary frequency. She is complaining as usual. REVIEW OF SYSTEMS: CONSTITUTIONAL: Weakness. No night sweats. No malaise, lethargy. No fever or chills. HEENT: Eyes: No visual changes. No eye pain. No eye discharge. ENT: No runny nose. No epistaxis. No sinus pain. No odynophagia. No congestion. RESPIRATORY: Positive for cough and rhonchi. No hemoptysis. No shortness of breath. CARDIOVASCULAR: No angina symptoms. No CHF symptoms. No atypical chest pain for CAD. No palpitations. No orthopnea.. GASTROINTESTINAL: No abdominal pain. No nausea or vomiting. No diarrhea or constipation. No hematemesis. No hematochezia. GENITOURINARY: Positive for urinary frequency. No dysuria. No hematuria. No obstructive symptoms. No discharge. No pain. No significant abnormal bleeding. MUSCULOSKELETAL: No musculoskeletal pain; no joint swelling. NEUROLOGICAL: Awake, alert, oriented to time, place and person. No headache. No neck pain. No syncope. No seizures. No dizziness. PSYCHIATRIC: Not anxious. No depression. No suicidal thoughts. No homicidal thoughts. SKIN: No rash. No lesions. No wounds. ENDOCRINE: No unexplained weight loss. No weight gain. HEMATOLOGIC/LYMPHATIC: No anemia. No purpura. No petechiae. No prolonged or excessive bleeding. No palpable lymph nodes. PHYSICAL EXAMINATION: GENERAL: The patient is awake, alert and oriented, lying in bed in no distress. VITAL SIGNS: Temperature 98.7 F, Pulse 64, Respiratory Rate 18, BP 152/68, Pulse Ox 95% HEENT: Head normocephalic, atraumatic. Eyes: Extraocular muscles are intact. Pupils are equal, round and reactive to light and accommodation. Ears: No lesions. Nose appeared normal. Throat: No exudate or erythema. NECK: Supple. No JVD, no carotid bruit. No lymphadenopathy or thyromegaly. LUNGS: Diminished breath sounds with bilatertal rhonchi. Percussion note normal. Chest symmetrical. HEART: S1, S2, no S3. No murmurs. No cyanosis or clubbing. No ascites. Pulses: Dorsalis pedis and posterior tibial pulses +1 to +2 both sides. ABDOMEN: Soft. Non-tender. Bowel sounds active. No CVA tenderness. No mass felt. EXTREMITIES: No edema. Full range of motion of all extremities, equal. NEUROLOGIC: No focal deficit. Cranial nerves II through XII are grossly intact. No headache, no double vision or headache. SKIN: Not dry. Intact. Turgor-normal. LYMPHATIC: No palpable lymph nodes/no lymphedema. MUSCULOSKELETAL: Normal joints with no swelling. Muscle tone is normal. LAB REVIEW: 07/04/18 04:15 07/04/18 04:15 07/04/18 04:15: Sodium 131.8 L, Potassium 3.97, Chloride 93.4 L, Carbon Dioxide 32.4 H, Anion Gap 9.97, BUN 4.0 L, Creatinine 0.40 L, Estimated GFR (MDRD) 151.00, BUN/Creatinine Ratio 10.00, Glucose 138.2 H, Calcium 8.50, Total Bilirubin 0.35, AST 30.1, ALT 16.7, Alkaline Phosphatase 83.2, Total Protein 6.36, Albumin 3.66, Globulin 2.70, Albumin/Globulin Ratio 1.35 07/04/18 04:15: WBC 7.00, RBC 3.61 L, Hgb 11.6 L, Hct 34.8 L, MCV 96.4, MCH 32.1 H, MCHC 33.3, RDW Coeff of Alfie 12.1, Plt Count 225, Immature Gran % (Auto) 0.4, Neut % (Auto) 88.8, Lymph % (Auto) 7.7 L, [place] % (Auto) 2.6, Eos % (Auto) 0.4, Baso % (Auto) 0.1, Immature Gran # (Auto) 0.0, Neut # (Auto) 6.2, Lymph # ( Auto) 0.5 L, [place] # (Auto) 0.2 L, Eos # (Auto) 0.0, Baso # (Auto) 0.0 07/03/18 18:55: Sodium 124.9 L, Potassium 4.12, Chloride 89.3 L, Carbon Dioxide 33.9 H, Anion Gap 5.82, BUN 7.0, Creatinine 0.59 L, Estimated GFR (MDRD) 96.00, BUN/Creatinine Ratio 11.86, Glucose 114.7 H, Calcium 9.13, Total Bilirubin 0.39 , AST 35.6, ALT 17.6, Alkaline Phosphatase 96.4, Total Protein 7.36, Albumin 4.31, Globulin 3.05, Albumin/Globulin Ratio 1.41 07/03/18 18:55: WBC 7.55, RBC 4.07 L, Hgb 13.0, Hct 39.4, MCV 96.8, MCH 31.9 H, MCHC 33.0, RDW Coeff of Alfie 12.2, Plt Count 259, Immature Gran % (Auto) 0.4, Neut % (Auto) 78.9, Lymph % (Auto) 12.8, [place] % (Auto) 7.2, Eos % (Auto) 0.4, Baso % (Auto) 0.3, Immature Gran # (Auto) 0.0, Neut # (Auto) 6.0, Lymph # (Auto ) 1.0, [place] # (Auto) 0.5, Eos # (Auto) 0.0, Baso # (Auto) 0.0 07/03/18 18:35: Puncture Site Rb, O2 Saturation 93.0 L, ABG pH 7.421, ABG pCO2 45.3 H, ABG pO2 68.0 L, ABG HCO3 29.5 H, ABG Total CO2 31 H, ABG Base Excess 5 H , FiO2 % 21.0 07/03/18 18:25: Influ A Molecular Assay Negative by naat, Influ B Molecular Assay Negative by naat ASSESSMENT: 1. Acute respiratory failure improving. 2. Questionable bilateral pneumonia. 3. COPD. 4. Hyponatremia. 5. Generalized weakness. PLAN: 1. Start Xopenex t.i.d. 2. Increase Solu-Medrol 100 q.8hr 3. UA 4. D/C Albuterol Plan and coordination of the patient's care discussed in the presence of Building Economist and nurse. CONDITION: Stable SCRIBED BY: GEETA CONCEPCION Core Machine Operator scribed while in presence of service performed by Dr. Ballard/Suze Beltran APRN on 07/04/18 ([id number])
[2018-07-04] MEDS: MS CONTIN PO SCH ×2 (09:38→20:45)
[2018-07-04] MEDS: ROCEPHIN 1 GM in SODIUM CHLORIDE 50 ML IV SCH (11:17)
[2018-07-04] MEDS ORDERED: SOLU-MEDROL 40 MG IVP SCH ×2 (13:00→21:00)
[2018-07-04] MEDS ORDERED: DULCOLAX RC PRN (13:46)
[2018-07-04] MEDS ORDERED: DULCOLAX RC STA (13:46)
[2018-07-04] MEDS: XOPENEX 1.25 MG NEB SCH ×2 (14:17→20:10)
[2018-07-04] MEDS ORDERED: SOLU-MEDROL 125 MG IVP SCH (16:00)
[2018-07-04] MEDS: NORCO 10-325 PO PRN (18:39)
[2018-07-04] MEDS: SOLU-MEDROL 125 MG IVP SCH (20:42)
[2018-07-04] MEDS: NORVASC PO SCH (20:45)
[2018-07-04] MEDS: RESTORIL PO PRN (23:03)
[2018-07-05] MEDS: SOLU-MEDROL 125 MG IVP SCH ×3 (04:22→20:22)
[2018-07-05] MEDS: XOPENEX 1.25 MG NEB SCH ×3 (05:00→20:45)
[2018-07-05] MEDS: DOXY-100 100 MG in SODIUM CHLORIDE 100 ML IV SCH ×2 (08:40→20:22)
[2018-07-05] MEDS: NEURONTIN PO SCH ×2 (08:42→20:22)
[2018-07-05] MEDS: MICRO-K CAP PO SCH (08:42)
[2018-07-05] MEDS: MS CONTIN PO SCH ×2 (08:42→22:31)
[2018-07-05] MEDS: CRESTOR PO SCH (08:42)
[2018-07-05] MEDS: LASIX TAB PO SCH (08:43)
[2018-07-05] MEDS: COZAAR PO SCH (08:43)
[2018-07-05] MEDS: LOVENOX SUBCUT SCH (08:44)
[2018-07-05] MEDS: NALOXEGOL OXALATE 12.5 MG PO SCH (08:44)
--- NOTE | 2018-07-05 09:00 | PCM.PROG ---
Attending Provider: ATTENDING PROVIDER: Dr. FRANSICO BALLARD This patient is seen with Suze Beltran, Nurse Practitioner. DATE OF SERVICE: 07/05/18 SUBJECTIVE: This 87 year old WHITE/ F was hospitalized 07/03/18. The patient is lying in bed resting comfortably. Oxygen saturation has been 100% on room air. REVIEW OF SYSTEMS: CONSTITUTIONAL: Weakness. No night sweats. No malaise, lethargy. No fever or chills. HEENT: Eyes: No visual changes. No eye pain. No eye discharge. ENT: No runny nose. No epistaxis. No sinus pain. No odynophagia. No congestion. RESPIRATORY: Cough, no congestion. No hemoptysis. No shortness of breath. CARDIOVASCULAR: No angina symptoms. No CHF symptoms. No atypical chest pain for CAD. No palpitations. No orthopnea.. GASTROINTESTINAL: No abdominal pain. No nausea or vomiting. No diarrhea or constipation. No hematemesis. No hematochezia. GENITOURINARY: No urgency. No frequency. No dysuria. No hematuria. No obstructive symptoms. No discharge. No pain. No significant abnormal bleeding. MUSCULOSKELETAL: No musculoskeletal pain; no joint swelling. NEUROLOGICAL: Awake, alert, oriented to person. No headache. No neck pain. No syncope. No seizures. No dizziness. PSYCHIATRIC: Not anxious. No depression. No suicidal thoughts. No homicidal thoughts. SKIN: No rash. No lesions. No wounds. ENDOCRINE: No unexplained weight loss. No weight gain. HEMATOLOGIC/LYMPHATIC: No anemia. No purpura. No petechiae. No prolonged or excessive bleeding. No palpable lymph nodes. PHYSICAL EXAMINATION: GENERAL: The patient is awake, alert and oriented, lying in bed in no distress. VITAL SIGNS: Temperature 97.6 F, Pulse 73, Respiratory Rate 18, BP 145/74, Pulse Ox 100% HEENT: Head normocephalic, atraumatic. Eyes: Extraocular muscles are intact. Pupils are equal, round and reactive to light and accommodation. Ears: No lesions. Nose appeared normal. Throat: No exudate or erythema. NECK: Supple. No JVD, no carotid bruit. No lymphadenopathy or thyromegaly. LUNGS: Diminished breath sounds with bilateral rhonchi. Percussion note normal. Chest symmetrical. HEART: S1, S2, no S3. No murmurs. No cyanosis or clubbing. No ascites. Pulses: Dorsalis pedis and posterior tibial pulses +1 to +2 both sides. ABDOMEN: Soft. Non-tender. Bowel sounds active. No CVA tenderness. No mass felt. EXTREMITIES: No edema. Full range of motion of all extremities, equal. NEUROLOGIC: No focal deficit. Cranial nerves II through XII are grossly intact. No headache, no double vision or headache. SKIN: Not dry. Intact. Turgor-normal. LYMPHATIC: No palpable lymph nodes/no lymphedema. MUSCULOSKELETAL: Normal joints with no swelling. Muscle tone is normal. LAB REVIEW: 07/05/18 04:55 07/05/18 04:55 07/05/18 04:55: Sodium 135.7, Potassium 3.70, Chloride 95.5 L, Carbon Dioxide 32.6 H, Anion Gap 11.30, BUN 3.9 L, Creatinine 0.40 L, Estimated GFR (MDRD) 151.00, BUN/Creatinine Ratio 9.75, Glucose 134.5 H, Calcium 8.79, Total Bilirubin 0.17 L, AST 30.4, ALT 16.2, Alkaline Phosphatase 80.6, Total Protein 6.71, Albumin 3.88, Globulin 2.83, Albumin/Globulin Ratio 1.37 07/05/18 04:55: WBC 6.28, RBC 3.90 L, Hgb 12.4, Hct 37.9, MCV 97.2, MCH 31.8 H, MCHC 32.7, RDW Coeff of Alfie 12.1, Plt Count 267, Immature Gran % (Auto) 0.8, Neut % (Auto) 83.8, Lymph % (Auto) 11.5, [place] % (Auto) 3.7, Eos % (Auto) 0.0, Baso % (Auto) 0.2, Immature Gran # (Auto) 0.1, Neut # (Auto) 5.3, Lymph # (Auto ) 0.7, [place] # (Auto) 0.2 L, Eos # (Auto) 0.0, Baso # (Auto) 0.0 07/04/18 08:10: Urine Color Yellow, Urine Clarity Clear, Urine pH 7.0, Ur Specific [place] 1.010, Urine Protein Negative, Urine Glucose (UA) Negative, Urine Ketones Negative, Urine Blood Negative, Urine Nitrite Negative, Urine Bilirubin Negative, Urine Urobilinogen 0.2, Ur Leukocyte Esterase Trace, Urine Microscopic WBC 0-2, Ur Squamous Epith Cells 0-2 ASSESSMENT: 1. Acute respiratory failure improving. 2. Questionable bilateral pneumonia. 3. COPD. 4. Hyponatremia. 5. Generalized weakness. PLAN: 1. Repeat chest x-ray today. 2. D/C IV fluids. 3. Anticipate d/c tomorrow. Plan and coordination of the patient's care discussed in the presence of Foreign Language Teacher and nurse. CONDITION: Stable SCRIBED BY: GEETA CONCEPCION Network Control Technician scribed while in presence of service performed by Dr. Ballard/Suze Beltran APRN on 07/05/18 ([id number])
[2018-07-05] MEDS: ROCEPHIN 1 GM in SODIUM CHLORIDE 50 ML IV SCH (10:18)
--- NOTE | 2018-07-05 12:53 | PN ---
DATE OF SERVICE: 07/04/18 SUBJECTIVE: The patient was seen and examined with the nurse practitioner. The patient's condition has improved. She has mild cough with congestion. No evidence of CHF. PLAN: Continue antibiotics, nebs, steroids. TIME SPENT: More than 30 minutes. Plan and coordination of the patient's care discussed in the presence of nurse. MOUSTAPHA
--- NOTE | 2018-07-05 14:06 | PN ---
DATE OF SERVICE: 07/05/18 SUBJECTIVE: The patient was seen and examined with the nurse practitioner. The patient needs nebs, steroids, antibiotics. Bronchitis is better. PHYSICAL EXAMINATION: HEENT: Head normocephalic, atraumatic. Eyes: Extraocular muscles are intact. Pupils are equal, round and reactive to light and accommodation. Ears: No lesions. Nose appeared normal. Throat: No exudate or erythema. NECK: Supple. No JVD, no carotid bruit. No lymphadenopathy or thyromegaly. LUNGS: Good air entry with very mild wheeze. Percussion note normal. Chest symmetrical. HEART: S1, S2, no S3. No murmurs. No cyanosis or clubbing. No ascites. Pulses: Dorsalis pedis and posterior tibial pulses +1 to +2 bilaterally. ABDOMEN: Soft. Nontender. Bowel sounds active. No CVA tenderness. No mass felt. EXTREMITIES: No edema. Full range of motion of all extremities, equal. NEUROLOGIC: No focal deficit. Cranial nerves II through XII are grossly intact. No headache, no double vision or headache. SKIN: Not dry. Intact. Turgor - normal. LYMPHATIC: No palpable lymph nodes/no lymphedema. MUSCULOSKELETAL: Normal joints with no swelling. Muscle tone is normal. TIME SPENT: More than 30 minutes. Plan and coordination of the patient's care discussed in the presence of nurse. MOUSTAPHA
--- NOTE | 2018-07-05 16:03 | DI ---
EXAM: CHEST FRONTAL AND LATERAL VIEWS HISTORY: Pneumonia. COMPARISON: 02/06/2018 FINDINGS: Mild cardiac enlargement is stable. Atherosclerotic disease. There is diffuse, chronic a ppearing interstitial accentuation. No acute infiltrates are seen. No vascular congestion. There i s no consolidation, visible pleural fluid or pneumothorax. Bones reveal no acute fracture. Spinal s timulator superimposed over the posterior mid spine. IMPRESSION: No acute cardiopulmonary process.
[2018-07-05] MEDS: NORCO 10-325 PO PRN (19:45)
[2018-07-05] MEDS: PROTONIX PO SCH (20:22)
[2018-07-05] MEDS: NORVASC PO SCH (20:22)
[2018-07-05] MEDS: RESTORIL PO PRN (22:31)
[2018-07-06] MEDS: SOLU-MEDROL 125 MG IVP SCH ×2 (04:21→13:00)
[2018-07-06] MEDS: XOPENEX 1.25 MG NEB SCH (04:32)
[2018-07-06 05:04] VITALS: BP 135/76; TEMP 97.3
--- NOTE | 2018-07-06 09:00 | PCM.PROG ---
Attending Provider: ATTENDING PROVIDER: Dr. FRANSICO BALLARD This patient is seen with Suze Beltran, Nurse Practitioner. DATE OF SERVICE: 07/06/18 SUBJECTIVE: This 87 year old WHITE/ F was hospitalized 07/03/18. The patient is lying in bed resting comfortably; has been sleeping well. She has been eating 100% of her meals. She has been up and about with no shortness of breath. She is ready to go home today REVIEW OF SYSTEMS: CONSTITUTIONAL: No night sweats. No fatigue, malaise, lethargy. No fever or chills. HEENT: Eyes: No visual changes. No eye pain. No eye discharge. ENT: No runny nose. No epistaxis. No sinus pain. No odynophagia. No congestion. RESPIRATORY: Cough. No congestion. No hemoptysis. No shortness of breath. CARDIOVASCULAR: No angina symptoms. No CHF symptoms. No atypical chest pain for CAD. No palpitations. No orthopnea.. GASTROINTESTINAL: No abdominal pain. No nausea or vomiting. No diarrhea or constipation. No hematemesis. No hematochezia. GENITOURINARY: No urgency. No frequency. No dysuria. No hematuria. No obstructive symptoms. No discharge. No pain. No significant abnormal bleeding. MUSCULOSKELETAL: No musculoskeletal pain; no joint swelling. NEUROLOGICAL: Awake, alert, oriented to time, place and person. No headache. No neck pain. No syncope. No seizures. No dizziness. PSYCHIATRIC: Not anxious. No depression. No suicidal thoughts. No homicidal thoughts. SKIN: No rash. No lesions. No wounds. ENDOCRINE: No unexplained weight loss. No weight gain. HEMATOLOGIC/LYMPHATIC: No anemia. No purpura. No petechiae. No prolonged or excessive bleeding. No palpable lymph nodes. PHYSICAL EXAMINATION: GENERAL: The patient is awake, alert and oriented, lying in bed in no distress. VITAL SIGNS: Temperature 97.3 F, Pulse 80, Respiratory Rate 18, BP 135/76, Pulse Ox 100% HEENT: Head normocephalic, atraumatic. Eyes: Extraocular muscles are intact. Pupils are equal, round and reactive to light and accommodation. Ears: No lesions. Nose appeared normal. Throat: No exudate or erythema. NECK: Supple. No JVD, no carotid bruit. No lymphadenopathy or thyromegaly. LUNGS: Diminished breath sounds. Clear to auscultation. Percussion note normal. Chest symmetrical. HEART: S1, S2, no S3. No murmurs. No cyanosis or clubbing. No ascites. Pulses: Dorsalis pedis and posterior tibial pulses +1 to +2 both sides. ABDOMEN: Soft. Non-tender. Bowel sounds active. No CVA tenderness. No mass felt. EXTREMITIES: No edema. Full range of motion of all extremities, equal. NEUROLOGIC: No focal deficit. Cranial nerves II through XII are grossly intact. No headache, no double vision or headache. SKIN: Not dry. Intact. Turgor-normal. LYMPHATIC: No palpable lymph nodes/no lymphedema. MUSCULOSKELETAL: Normal joints with no swelling. Muscle tone is normal. LAB REVIEW: 07/06/18 06:51 07/06/18 06:51 07/06/18 06:51: Sodium 135.9, Potassium 3.91, Chloride 95.1 L, Carbon Dioxide 31.2 H, Anion Gap 13.51, BUN 7.5, Creatinine 0.42 L, Estimated GFR (MDRD) 143.00 , BUN/Creatinine Ratio 17.85, Glucose 185.7 H, Calcium 8.73, Total Bilirubin 0.14 L, AST 30.4, ALT 18.8, Alkaline Phosphatase 85.0, Total Protein 6.15 L, Albumin 3.50, Globulin 2.65, Albumin/Globulin Ratio 1.32 07/06/18 06:51: WBC 12.22 H D, RBC 3.65 L, Hgb 11.8 L, Hct 35.6 L, MCV 97.5, MCH 32.3 H, MCHC 33.1, RDW Coeff of Alfie 12.3, Plt Count 263, Immature Gran % ( Auto) 1.2, Neut % (Auto) 92.6, Lymph % (Auto) 3.9 L, [place] % (Auto) 2.1, Eos % ( Auto) 0.0, Baso % (Auto) 0.2, Immature Gran # (Auto) 0.2, Neut # (Auto) 11.3 H, Lymph # (Auto) 0.5 L, [place] # (Auto) 0.3 L, Eos # (Auto) 0.0, Baso # (Auto) 0.0 ASSESSMENT: 1. Acute respiratory failure resolved. 2. Questionable bilateral pneumonia - improved. 3. COPD. 4. Hyponatremia. 5. Generalized weakness. PLAN: 1. D/C home. 2. Three-step oxygen test. 3. Keflex 500 mg t.i.d. times 5 days. 4. Prednisone 10 mg b.i.d times 5 days. Plan and coordination of the patient's care discussed in the presence of Cage Cashier and nurse. CONDITION: Stable SCRIBED BY: GEETA CONCEPCION Poker Prop Player scribed while in presence of service performed by Dr. Ballard/Suze Beltran APRN on 07/06/18 (0800)
[2018-07-06] MEDS: ROCEPHIN 1 GM in SODIUM CHLORIDE 50 ML IV SCH (09:06)
[2018-07-06] MEDS: COZAAR PO SCH (09:07)
[2018-07-06] MEDS: NEURONTIN PO SCH (09:07)
[2018-07-06] MEDS: MS CONTIN PO SCH (09:07)
[2018-07-06] MEDS: LASIX TAB PO SCH (09:07)
[2018-07-06] MEDS: CRESTOR PO SCH (09:07)
[2018-07-06] MEDS: MICRO-K CAP PO SCH (09:07)
[2018-07-06] MEDS: LOVENOX SUBCUT SCH (09:09)
--- NOTE | 2018-07-06 10:22 | CM.DICTOOL ---
ADMISSION: 07/03/18 19:53 DISCHARGE: 07/06/18 DATE OF SERVICE: 07/06/18 FINAL DIAGNOSIS ACUTE RESPIRATORY FAILURE QUESTIONABLE PNEUMONIA-RESOLVED NONCALCIFIED LUNG NODULES, POST SEG RUL (0.9 CM AND 0.7 CM) CT CHEST, 07/02/18 HYPERTENSION DYSLIPIDEMIA CHRONIC LOWER EXTREMITY EDEMA COPD GERD CHRONIC CONSTIPATION ARTHRITIS CHRONIC BACK PAIN (PAIN MANAGEMENT AT [facility], DR. LUNA) NEUROPATHY ANXIETY INSOMNIA BILATERAL HIP REPLACEMENTS (RIGHT HIP-07/11/14; LEFT HIP- 2013) NEVER SMOKER LAST PFT AT [facility], 03/17 MILD RESTRICTIVE LUNG DISEASE LAST ECHO AT [facility], 03/17 LVEF 40-45% LVH WITH ENLARGED LEFT ATRIAL CAVITY HYPOKINETIC LEFT VENTRICLE LAST VITALS Temp Pulse Resp BP Pulse Ox 97.3 F L 80 18 135/76 100 07/06/18 05:02 07/06/18 05:02 07/06/18 05:02 07/06/18 05:02 07/06/18 05:02 TAKE THESE MEDICATIONS AT HOME Amlodipine Besylate (Norvasc) 5 mg PO BEDTIME [facility] Last Admin: 07/05/18 20:22 Dose: 5 mg Docusate Sodium (Colace) 100 mg PO BID PRN PRN Reason: Constipation Last Admin: 07/04/18 01:08 Dose: 100 mg Furosemide (Lasix Tab) 20 mg PO DAILY [facility] Last Admin: 07/05/18 08:43 Dose: 20 mg Gabapentin (Neurontin) 300 mg PO BID [facility] Last Admin: 07/05/18 20:22 Dose: 300 mg Cephalexin (Keflex) 500 mg PO TID x 5 DAYS ONLY Hydrocodone Bitart/Acetaminophen ([place] 10-325) 1 tab PO BID PRN PRN Reason: MODERATE PAIN Last Admin: 07/05/18 19:45 Dose: 1 tab Losartan Potassium (Cozaar) 100 mg PO DAILY [facility] Last Admin: 07/05/18 08:43 Dose: 100 mg Morphine Sulfate (Ms Contin) 15 mg PO Q12HR [facility] Last Admin: 07/05/18 22:31 Dose: 15 mg Naloxegol Oxalate [Movantik] 12.5 mg pe PO DAILY [facility] Last Admin: 07/05/18 08:44 Dose: Not Given Ondansetron HCl (Zofran Tab) 4 mg PO TID PRN PRN Reason: Nausea / Vomiting Pantoprazole Sodium (Protonix) 40 mg PO BEDTIME [facility] Last Admin: 07/05/18 20:22 Dose: 40 mg Potassium Chloride (Micro-K Cap) 10 meq PO DAILY [facility] Last Admin: 07/05/18 08:42 Dose: 10 meq Prednisone 10 mg PO BID x5 DAYS ONLY (with food) Rosuvastatin Calcium (Crestor) 10 mg PO DAILY [facility] Last Admin: 07/05/18 08:42 Dose: 10 mg Temazepam (Restoril) 30 mg PO BEDTIME PRN PRN Reason: Insomnia Last Admin: 07/05/18 22:31 Dose: 30 mg ALLERGIES celecoxib [From Celebrex] Adverse Reaction (Intermediate, Verified 02/06/18 01: 11) Rash Iodinated Contrast- Oral and IV Dye [Iodinated Contrast Media - IV Dye] Adverse Reaction (Verified 02/06/18 01:11) NEW PRESCRIPTIONS: Cephalexin [Keflex] 500 mg PO TID 5 Days #15 capsule 07/06/18 Prednisone 10 mg PO BIDWM 5 Days #10 tablet 07/06/18 SMOKING: NEVER SMOKER DISEASE SPECIFIC EDUCATION: PNEUMONIA HYPERTENSION HOME MEDICATIONS NEW PRESCRIPTIONS RISKS POSSIBLE WITH LONG-TERM USE OF STEROIDS SUCH BONE DEMINERALIZATION, AVASCULAR NECROSIS FOLLOW UP LAB REVIEW: 07/06/18 06:51 07/06/18 06:51 07/06/18 06:51: Sodium 135.9, Potassium 3.91, Chloride 95.1 L, Carbon Dioxide 31.2 H, Anion Gap 13.51, BUN 7.5, Creatinine 0.42 L, Estimated GFR (MDRD) 143.00 , BUN/Creatinine Ratio 17.85, Glucose 185.7 H, Calcium 8.73, Total Bilirubin 0.14 L, AST 30.4, ALT 18.8, Alkaline Phosphatase 85.0, Total Protein 6.15 L, Albumin 3.50, Globulin 2.65, Albumin/Globulin Ratio 1.32 07/06/18 06:51: WBC 12.22 H D, RBC 3.65 L, Hgb 11.8 L, Hct 35.6 L, MCV 97.5, MCH 32.3 H, MCHC 33.1, RDW Coeff of Alfie 12.3, Plt Count 263, Immature Gran % ( Auto) 1.2, Neut % (Auto) 92.6, Lymph % (Auto) 3.9 L, Bennett % (Auto) 2.1, Eos % ( Auto) 0.0, Baso % (Auto) 0.2, Immature Gran # (Auto) 0.2, Neut # (Auto) 11.3 H, Lymph # (Auto) 0.5 L, Bennett # (Auto) 0.3 L, Eos # (Auto) 0.0, Baso # (Auto) 0.0 PLAN: DISCHARGE HOME TODAY, 07/06/[address] BALLARD IN HIS OFFICE ON 07/11/18 AT 1:45 P.M. [facility] WILL DELIVER OXYGEN FOR HOME USE AND A PORTABLE SYSTEM FOR CONTINUOUS USE [address] [place] [id number] RESUME YOUR HOME MEDICATIONS PER LIST PROVIDED BY THE NURSING STAFF NEW PRESCRIPTIONS CEPHALEXIN (KEFLEX) 500 MG, TAKE ONE CAPSULE BY MOUTH THREE TIMES DAILY FOR 5 DAYS ONLY PREDNISONE 10 MG, TAKE ONE TABLET BY MOUTH TWICE DAILY WITH FOOD FOR 5 DAYS ONLY ACTIVITY GET PLENTY OF REST AT HOME. GRADUALLY INCREASE YOUR ACTIVITY LEVEL ACCORDING TO YOUR TOLERATION DIET HEALTHY HEART TOLERATED SUMMARY THE PATIENT IS ALERT AND ORIENTED X3. SHE CURRENTLY RESIDES AT HOME WITH HER SPOUSE. SHE USES A CANE TO ASSIST WITH AMBULATION. OTHERWISE SHE DOES NOT REQUIRE HOME HEALTH OR HOMEMAKING SERVICES. SHE DESIRES TO RETURN HOME AT DISCHARGE. HER SKIN TURGOR IS INTACT AND WELL HYDRATED. APPETITE HAS BEEN GOOD DURING THIS STAY. MS. BRANHAM IS AWARE AND AGREEABLE FOR DISCHARGE TODAY. SHE WILL FOLLOW UP IN THE OFFICE SCHEDULED ABOVE. SHE WILL NEED TO USE CONTINUOUS OXYGEN AT HOME HER EXERCISE SATS ARE 87% ON ROOM AIR AND IMPROVE TO 94% WITH USE OF 2L/NC. CURRENT CODE STATUS FULL CODE [id number] CRUZ APRN FRANSICO BLALARD M.D.
[2018-07-06] MEDS: DOXY-100 100 MG in SODIUM CHLORIDE 100 ML IV SCH (10:38)
[2018-07-06] MEDS: NALOXEGOL OXALATE 12.5 MG PO SCH (10:39)
--- NOTE | 2018-07-09 14:30 | HP ---
DATE OF SERVICE: 07/03/18 HISTORY OF PRESENT ILLNESS: This is an 87-year-old white female who had been in the office several days prior with cough, congestion, was started on Z-pack and Prednisone. She presents to the emergency room complaining of worsening shortness of breath. PAST MEDICAL HISTORY: Hypertension Dyslipidemia Chronic leg edema COPD GERD Chronic constipation Polyarthritis Chronic back pain - sees Pain Management Neuropathy Anxiety Insomnia LVH with enlarged atrial cavity PAST SURGICAL HISTORY: Bilateral hip replacements REVIEW OF SYSTEMS: CONSTITUTIONAL: Generalized fatigue. No night sweats. No malaise, lethargy. No fever or chills. HEENT: Eyes: No visual changes. No eye pain. No eye discharge. ENT: No runny nose. No epistaxis. No sinus pain. No sore throat. No odynophagia. No ear pain. No congestion. RESPIRATORY: Positive for cough, shortness of breath. No hemoptysis. CARDIOVASCULAR: No angina symptoms. No CHF symptoms. No atypical chest pain for CAD. No palpitations. No PND. No orthopnea. GASTROINTESTINAL: No abdominal pain. No nausea or vomiting. No diarrhea or constipation. No hematemesis. No hematochezia. GENITOURINARY: No urgency. No frequency. No dysuria. No hematuria. No obstructive symptoms. No discharge. No pain. No significant abnormal bleeding. MUSCULOSKELETAL: No musculoskeletal pain. No joint swelling. No arthritis. NEUROLOGICAL: No headache. No neck pain. No syncope. No seizures. No dizziness. PSYCHIATRIC: Not anxious. No depression. No suicidal thoughts. No homicidal thoughts. SKIN: No rash. No lesions. No wounds. ENDOCRINE: No unexplained weight loss. No weight gain. HEMATOLOGIC/LYMPHATIC: No anemia. No purpura. No petechiae. No prolonged or excessive bleeding. No palpable lymph nodes. PERSONAL/FAMILY/SOCIAL HISTORY: MEDICATIONS: (HOME) Pantoprazole 40 mg p.o. bedtime Gabapentin 300 mg one cap p.o. b.i.d. Crestor 10 mg p.o. daily Cozaar 100 mg p.o. daily Lasix 20 mg p.o. daily Norvasc 5 mg p.o. bedtime Docusate Sodium (Colace) 100 mg p.o. b.i.d. p.r.n. Naloxegol (Movantik) 12.5 mg p.o. daily Restoril 30 mg p.o. bedtime p.r.n. Zofran 4 mg p.o. t.i.d. p.r.n. Morphine Sulfate (MS Contin) 15 mg p.o. q.12h p.r.n. Hydrocodone/Acetaminophen 54=357 each p.o. b.i.d. p.r.n. Potassium Chloride (K-Tab ER) 10 mEq p.o. daily Fluticasone one spray NS b.i.d. Diclofenac (Voltaren) 100 gm gel one applicator TP bedtime ALLERGIES: CELECOXIB, IODINATED CONTRAST - ORAL AND IV DYE PHYSICAL EXAMINATION: HEENT: Head normocephalic, atraumatic. Eyes: Extraocular muscles are intact. Pupils are equal, round and reactive to light and accommodation. Ears: No lesions. Nose appeared normal. Throat: No exudate or erythema. NECK: Supple. No JVD, no carotid bruit. No lymphadenopathy or thyromegaly. LUNGS: Clear to auscultation. Percussion note normal. Chest symmetrical. HEART: S1, S2, no S3. No murmurs. No cyanosis or clubbing. No ascites. Pulses: Dorsalis pedis and posterior tibial pulses +1 to +2 bilaterally. ABDOMEN: Soft. Nontender. Bowel sounds active. No CVA tenderness. No mass felt. EXTREMITIES: No edema. Full range of motion of all extremities, equal. NEUROLOGIC: No focal deficit. Cranial nerves II through XII are grossly intact. No headache, no double vision or headache. SKIN: Not dry. Intact. Turgor - normal. LYMPHATIC: No palpable lymph nodes/no lymphedema. MUSCULOSKELETAL: Normal joints with no swelling. Muscle tone is normal. White count 7.5, hemoglobin 13, hematocrit 39.4, platelets 259. Sodium 124, potassium 4.1, BUN 7, creatinine 0.5. ABGs 02 sat 93, pH 7.4, pc02 45.3, p02 68 , bicarb 29.5, total c02 31 with a base excess of 5. Flu A and B both are negative. CT of chest shows noncalcified lung nodules, 0.9 and 0.7 cm. There is bilateral questionable pneumonia vs atelectasis. ASSESSMENT: 1. ACUTE RESPIRATORY FAILURE 2. BILATERAL QUESTIONABLE PNEUMONIA 3. CALCIFIED LUNG NODULES 4. HYPONATREMIA PLAN: 1. We will admit. 2. Routine telemetry orders. 3. CBC, CMP daily. 4. Rocephin 1 gm IV daily. 5. 02 at 1 to 2L. 6. ABGs in two hours after oxygen therapy. 7. Start on Doxycycline 100 mg IV q.12hr. 8. Continue all home medications. 9. Xopenex neb treatments q.6hr. 10. Solu-Medrol 100 mg IV q.8hr. 11. Urine with culture. 12. Fall precautions. 13. Will follow closely. TIME SPENT: More than 70 minutes. MTDD
--- NOTE | 2018-07-09 14:51 | DS ---
DATE OF SERVICE: 07/06/18 FINAL DIAGNOSIS: 1. ACUTE RESPIRATORY FAILURE 2. QUESTIONABLE PNEUMONIA-RESOLVED 3. NONCALCIFIED LUNG NODULES, POST SEG RUL (0.9 CM AND 0.7 CM) CT CHEST, 07/02/18 4. HYPERTENSION 5. DYSLIPIDEMIA 6. CHRONIC LOWER EXTREMITY EDEMA 7. COPD 8. GERD 9. CHRONIC CONSTIPATION 10. ARTHRITIS 11. CHRONIC BACK PAIN (PAIN MANAGEMENT AT [facility], DR. PARSONS) 12. NEUROPATHY 13. ANXIETY 14. INSOMNIA 15. BILATERAL HIP REPLACEMENTS (RIGHT HIP-07/11/14; LEFT HIP- 2013) 16. NEVER SMOKER LAST VITAL SIGNS: Temperature 97.3, Pulse 80, Respiratory Rate 18, BP 135/76, Pulse Ox 100. DISCHARGE INSTRUCTIONS: 1. FOLLOW UP WITH DR. BALLARD IN HIS OFFICE ON 07/11/18 AT 1:45 P.M. 2. [facility] WILL DELIVER OXYGEN FOR HOME USE AND A PORTABLE SYSTEM FOR CONTINUOUS USE: [address] [place] [address] MEDICATIONS AT DISCHARGE: Amlodipine Besylate (Norvasc) 5 mg PO BEDTIME [facility] Last Admin: 07/05/18 20:22 Dose: 5 mg Docusate Sodium (Colace) 100 mg PO BID PRN PRN Reason: Constipation Last Admin: 07/04/18 01:08 Dose: 100 mg Furosemide (Lasix Tab) 20 mg PO DAILY [facility] Last Admin: 07/05/18 08:43 Dose: 20 mg Gabapentin (Neurontin) 300 mg PO BID [facility] Last Admin: 07/05/18 20:22 Dose: 300 mg Cephalexin (Keflex) 500 mg PO TID x 5 DAYS ONLY Hydrocodone Bitart/Acetaminophen ([place] 10-325) 1 tab PO BID PRN PRN Reason: MODERATE PAIN Last Admin: 07/05/18 19:45 Dose: 1 tab Losartan Potassium (Cozaar) 100 mg PO DAILY [facility] Last Admin: 07/05/18 08:43 Dose: 100 mg Morphine Sulfate (Ms Contin) 15 mg PO Q12HR [facility] Last Admin: 07/05/18 22:31 Dose: 15 mg Naloxegol Oxalate 12.5 mg pe PO DAILY [facility] Last Admin: 07/05/18 08:44 Dose: Not Given Ondansetron HCl (Zofran Tab) 4 mg PO TID PRN PRN Reason: Nausea / Vomiting Pantoprazole Sodium (Protonix) 40 mg PO BEDTIME [facility] Last Admin: 07/05/18 20:22 Dose: 40 mg Potassium Chloride (Micro-K Cap) 10 meq PO DAILY [facility] Last Admin: 07/05/18 08:42 Dose: 10 meq Prednisone 10 mg PO BID x5 DAYS ONLY (with food) Rosuvastatin Calcium (Crestor) 10 mg PO DAILY [facility] Last Admin: 07/05/18 08:42 Dose: 10 mg Temazepam (Restoril) 30 mg PO BEDTIME PRN PRN Reason: Insomnia Last Admin: 07/05/18 22:31 Dose: 30 mg NEW PRESCRIPTIONS: CEPHALEXIN (KEFLEX) 500 MG, TAKE ONE CAPSULE BY MOUTH THREE TIMES DAILY FOR 5 DAYS ONLY PREDNISONE 10 MG, TAKE ONE TABLET BY MOUTH TWICE DAILY WITH FOOD FOR 5 DAYS ONLY DIET INSTRUCTIONS: HEALTHY HEART TOLERATED ACTIVITY: GET PLENTY OF REST AT HOME. GRADUALLY INCREASE YOUR ACTIVITY LEVEL ACCORDING TO YOUR TOLERATION SMOKING: NEVER SMOKER DISEASE SPECIFIC EDUCATION: PNEUMONIA HYPERTENSION HOME MEDICATIONS NEW PRESCRIPTIONS RISKS POSSIBLE WITH LONG-TERM USE OF STEROIDS SUCH BONE DEMINERALIZATION, AVASCULAR NECROSIS FOLLOW UP HOSPITAL COURSE: This is an 87-year-old white female who was admitted with acute respiratory failure and bilateral pneumonia through the emergency room. She had failed as an outpatient on Z-Pack and Prednisone. She was admitted, placed on telemetry orders, started on NS at 75 cc/hr. She was hyponatremic with a sodium of 129 initially. This significantly improved with IV fluids. CT of the chest showed pneumonia. Also, showed some noncalcified lung nodules which are new. Recommended repeat chest CT in 6 months. She was started on Rocephin 1 gm IV daily along with Doxycycline 100 mg IV q.12hr along with Solu-Medrol 100 mg IV q.8hr. She was initially started on Duonebs neb treatments. I changed her to Xopenex neb treatments t.i.d. She was on oxygen at 1 to 2L to keep her sat greater than 90. She has been experiencing some weakness and shortness of breath. She significantly improved during her hospital stay. She has been eating well for the past 24 hours. She has been getting up and about. We did do a three-step 02 prior to discharge which showed she does have a need for oxygen specifically with exertion. She also feels that she needs to wear it at night, helps her feel better, more rested in the morning. She has chronic back pain which is managed through pain medication through Dr. Parsons at the [facility]. She has history of leg edema, did not experience any here. We only did her IV fluids for about 36 hours, was discontinued to avoid fluid overload. Repeat chest x-ray showed normal lungs. No pneumonia. Again, she is breathing with no problem. She has been sitting up, eating well so we will discharge her today in stable condition and follow up with her next week in the office. TIME SPENT: More than 60 minutes. MOUSTAPHA
== END 2018-07-06 13:05 | disposition home or self-care (01) | DRG 189 ==
LOC: ED 17:25 → MEDSURG B 19:53
PROVIDERS: ADMIT Internal Medicine; ATTEND Internal Medicine
DX: J96.00 Acute respiratory failure, unspecified whether with hypoxia or hypercapnia (principal); J18.9 Pneumonia, unspecified organism; E87.1 Hypo-osmolality and hyponatremia; E78.5 Hyperlipidemia, unspecified; J06.9 Acute upper respiratory infection, unspecified; I10 Essential (primary) hypertension; J44.9 Chronic obstructive pulmonary disease, unspecified; K21.9 Gastro-esophageal reflux disease without esophagitis; K59.09 Other constipation; M19.90 Unspecified osteoarthritis, unspecified site; M54.9 Dorsalgia, unspecified; G62.9 Polyneuropathy, unspecified; G47.00 Insomnia, unspecified; F41.9 Anxiety disorder, unspecified; R06.00 Dyspnea, unspecified; R09.81 Nasal congestion; R50.9 Fever, unspecified; R53.1 Weakness; R06.02 Shortness of breath; R91.1 Solitary pulmonary nodule; R60.0 Localized edema
CPT/HCPCS: 36415; 80053; 81001; 82803; 85025; 87040; 87502; 87651; 93005; 93010; 94640; 94761; 99283

== ENCOUNTER 2018-10-11 15:22 | Emergency (ER) ==
[2018-10-11 15:30] VITALS: BP 143/80; TEMP 99.1
--- NOTE | 2018-10-11 15:36 | ED.PDOC ---
General ED Provider: Dr. DARRYL FARAH Chief Complaint: Fall Stated Complaint: 87 y old fell apparently due to a syncopal epoisopde-NK rigin/ .She is fully asymptomatic now,She fell 8 days past but woulkd like to ch3eck if everything is OK,No new symptoms Time Seen by Physician: 15:35 Mode of Arrival: Wheelchair Information Source: Patient Exam Limitations: No limitations Primary Care Provider: FRANSICO BALLARD Nursing and Triage Documentation Reviewed and Agree: Yes Does patient meet sepsis criteria?: No System Inflammatory Response Syndrome: Not Applicable Sepsis Protocol: For patient's 13 years and over: Temp is 96.8 and below OR 101 and greater Pulse >90 BPM Resp >20/minute Acutely Altered Mental Status Are patient's symptoms suggestive of a new infection, such as: -Pneumonia -Skin, Soft Tissue -Endocarditis -UTI -Bone, Joint Infection -Implantable Device -Acute Abdominal Infection -Wound Infection -Meningitis -Blood Stream Catheter Infection -Unknown Trauma/Injury Complaint Exam - Head Injury Complaint/Exam Location of Pain: Reports: Forehead Mechanism of Injury: Reports: Trauma Onset/Duration: fall today during syncopal episode Symptoms Are: Resolved Initial Severity: Mild Current Severity: None Character: Reports: Dull Aggravating: Reports: None Associated Signs and Symptoms: Reports: Nausea Loss of Consciousness: Seconds SDH Risk Factors: Present: None Cervical Spine Injury Risk Factors: Present: None Related Surgical History: Reports: None C-Collar in Place: no Immobilization Removed Post Exam: No Head Injury Findings: Present: Normal findings Glascow Coma Scale (see protocol): normal 15 Focal Weakness: Present: None Focal Sensory Loss: Present: None Review of Systems - Review Of Systems Constitutional: Reports: No symptoms Eyes: Reports: No symptoms Ears, Nose, Mouth, Throat: Reports: No symptoms Respiratory: Reports: No symptoms Cardiac: Reports: No symptoms GI: Reports: No symptoms : Reports: No symptoms Musculoskeletal: Reports: No symptoms Skin: Reports: No symptoms Neurological: Reports: No symptoms Endocrine: Reports: No symptoms Hematologic/Lymphatic: Reports: No symptoms All Other Systems: Reviewed and Negative Past Medical History - Past Medical History Previously Healthy: No Endocrine: Reports: Unknown Cardiovascular: Reports: Unknown Respiratory: Reports: Unknown Hematological: Reports: Unknown Gastrointestinal: Reports: Unknown Genitourinary: Reports: Unknown Neuro/Psych: Reports: Unknown Musculoskeletal: Reports: Unknown Cancer: Reports: Unknown Last Menstrual Period: menopause - Surgical History General Surgical History: Reports: Unknown - Family History Family History: Reports: Unknown - Social History Smoking Status: Never smoker Hx Substance Use: No Alcohol Screening: None Physical Exam - Physical Exam Appearance: Well-appearing Ill-appearing: None Pain Distress: None Eyes: JENNA, EOMI, Conjunctiva clear ENT: Ears normal, Nose normal, Oropharynx normal Neck: Supple Respiratory: Airway patent, Breath sounds clear, Breath sounds equal Cardiovascular: RRR, Pulses normal, No rub, No murmur GI/: Soft, Nontender Musculoskeletal: Normal strength, ROM intact, No edema, No calf tenderness Skin: Warm, Dry, Normal color Neurological: Sensation intact, Motor intact, Reflexes intact, Cranial nerves intact, Alert, Oriented Psychiatric: Affect appropriate Physician Notification - Case Discussed Physician Notified: consulted about the case-decision discharge f/u offivce. Time of Notification: 17:10 Critical Care Note - Critical Care Note Total Time (mins): 0 Course - Course Hematology/Chemistry: 10/11/18 15:45 10/11/18 15:45 Orders, Labs, Meds: Lab Review 10/11/18 10/11/18 10/11/18 15:45 15:45 16:10 WBC 6.87 RBC 3.66 L Hgb 11.9 L Hct 35.5 L MCV 97.0 MCH 32.5 H MCHC 33.5 RDW Coeff of Alfie 11.9 Plt Count 306 Immature Gran % (Auto) 0.4 Neut % (Auto) 62.0 Lymph % (Auto) 28.5 [place] % (Auto) 8.4 Eos % (Auto) 0.3 Baso % (Auto) 0.4 Immature Gran # (Auto) 0.0 Neut # (Auto) 4.3 Lymph # (Auto) 2.0 [place] # (Auto) 0.6 Eos # (Auto) 0.0 Baso # (Auto) 0.0 Sodium 132.5 L Potassium 4.43 Chloride 88.9 L Carbon Dioxide 36.8 H Anion Gap 11.23 BUN 7.6 Creatinine 0.55 L Estimated GFR (MDRD) 105.00 BUN/Creatinine Ratio 13.81 Glucose 122.8 H Calcium 9.30 Total Bilirubin 0.37 AST 33.0 ALT 13.7 Alkaline Phosphatase 85.3 Troponin I < 0.012 Total Protein 7.16 Albumin 4.35 Globulin 2.81 Albumin/Globulin Ratio 1.54 Urine Color Urine Clarity Urine pH Ur Specific [place] Urine Protein Urine Glucose (UA) Urine Ketones Urine Blood Urine Nitrite Urine Bilirubin Urine Urobilinogen Ur Leukocyte Esterase 10/11/18 16:20 WBC RBC Hgb Hct MCV MCH MCHC RDW Coeff of Alfie Plt Count Immature Gran % (Auto) Neut % (Auto) Lymph % (Auto) [place] % (Auto) Eos % (Auto) Baso % (Auto) Immature Gran # (Auto) Neut # (Auto) Lymph # (Auto) [place] # (Auto) Eos # (Auto) Baso # (Auto) Sodium Potassium Chloride Carbon Dioxide Anion Gap BUN Creatinine Estimated GFR (MDRD) BUN/Creatinine Ratio Glucose Calcium Total Bilirubin AST ALT Alkaline Phosphatase Troponin I Total Protein Albumin Globulin Albumin/Globulin Ratio Urine Color Yellow Urine Clarity Clear Urine pH 7.5 Ur Specific [place] 1.010 Urine Protein Negative Urine Glucose (UA) Negative Urine Ketones Negative Urine Blood Negative Urine Nitrite Negative Urine Bilirubin Negative Urine Urobilinogen 0.2 Ur Leukocyte Esterase Negative Orders Category Date Time Status EKG-(ED ONLY) Stat CARDIO 10/11/18 15:38 Completed CBC W/ AUTO DIFF Stat LAB 10/11/18 15:45 Completed COMPREHENSIVE METABOLIC PANEL Stat LAB 10/11/18 15:45 Completed TROPONIN I Stat LAB 10/11/18 16:10 Completed URINALYSIS C & S IF INDICATED Stat LAB 10/11/18 16:20 Completed CHEST, 2 VIEWS PA & LAT Stat RADS 10/11/18 15:[address] HEAD W/O CONTRAST Stat RADS 10/11/18 15:36 Completed Vital Signs: Temp Pulse Resp BP Pulse Ox 10/11/18 15:22 99.1 F 74 16 143/80 H 92 L Departure - Departure Time of Disposition: 17:08 Disposition: HOME SELF-CARE Discharge Problem: Fall Instructions: Syncope in Older Adults (ED) Condition: Good Pt referred to PMD for follow-up: Yes IPMP verified?: No Allergies/Adverse Reactions: Allergies celecoxib [From Celebrex] Adverse Reaction (Intermediate, Verified 10/11/18 15: 32) Rash Iodinated Contrast- Oral and IV Dye [Iodinated Contrast Media - IV Dye] Adverse Reaction (Verified 10/11/18 15:32) Home Medications: Ambulatory Orders Gabapentin 1 cap PO BID 03/19/15 Pantoprazole Sodium 40 mg PO BEDTIME 07/17/14 Losartan Potassium [Cozaar] 100 mg PO DAILY 08/18/14 Rosuvastatin Calcium [Crestor] 10 mg PO DAILY 08/18/14 Amlodipine Besylate [Norvasc] 5 mg PO BEDTIME 10/07/14 Furosemide [Lasix] 20 mg PO DAILY 10/07/14 Docusate Sodium [Colace] 1 tab PO BID PRN 01/24/17 Hydrocodone/Acetaminophen [Hydrocodon-Acetaminophn 10-325] 10 - 325 each PO BID PRN 02/06/18 Morphine Sulfate [Ms Contin] 15 mg PO Q12HR PRN 02/06/18 Naloxegol Oxalate [Movantik] 12.5 mg pe PO DAILY 02/06/18 Ondansetron HCl [Zofran] 4 mg PO TID PRN 02/06/18 Temazepam [Restoril] 30 mg PO BEDTIME PRN 02/06/18 Diclofenac Sodium [Voltaren] 1 applic TP BEDTIME 07/03/18 Fluticasone Propionate [Flonase] 1 spray NS BID 07/03/18 Disposition Discussed With: Patient
--- NOTE | 2018-10-11 16:17 | DI ---
EXAM: Two views of the chest. History: Chest trauma. Comparison: Chest radiograph 07/05/2018 Findings: Heart is enlarged. Spinal stimulator device. Atherosclerotic vascular calcifications. S table chronic blunting of the left costophrenic angle most likely due to scarring. No consolidation and no pneumothorax. No acute osseous abnormalities. Degenerative changes of the spine. Impression: Cardiomegaly without acute disease in the chest
--- NOTE | 2018-10-11 16:25 | CT ---
EXAM: CT of the head without contrast History: Head trauma. Comparison: Head CT 09/21/2012 Technique: Multiplanar CT images through the head were obtained without the administration of IV con trast Findings: No change in the chronic opacification of the right sphenoid sinuses. Mastoid air cells a re clear. No acute calvarial abnormalities. Intracranially there is stable atrophy. No midline shift and no hydrocephalus. No acute intracrania l hemorrhage or abnormal extraaxial fluid collections. Periventricular and subcortical white matter hypodensities again noted. 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 Impression: 1. No acute intracranial process. 2. 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 3. 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
== END 2018-10-11 17:15 | disposition home or self-care (01) ==
LOC: ED 15:22
DX: R55 Syncope and collapse (principal); S09.90XA Unspecified injury of head, initial encounter; R11.0 Nausea; W19.XXXA Unspecified fall, initial encounter
CPT/HCPCS: 36415; 80053; 81001; 84484; 85025; 93005; 93010; 99283

== ENCOUNTER 2020-04-09 14:16 | Inpatient (IN) ==
[2020-04-09] MEDS ORDERED: VISTARIL INJ IM PRN (14:40)
[2020-04-09] MEDS ORDERED: NITROSTAT SL PRN (14:40)
[2020-04-09] MEDS ORDERED: ATROPINE SULFATE PFS IVP PRN (14:40)
[2020-04-09] MEDS ORDERED: TYLENOL PO PRN (14:40)
[2020-04-09] MEDS ORDERED: LASIX IVP STA (14:43)
[2020-04-09 14:56] VITALS: BMI 21.6
[2020-04-09 15:03] LABS: BASOPHILS % (AUTO) 0.5 % (0.0-3.0); EOSINOPHILS % (AUTO) 0.3 % (0.0-7.0); HEMATOCRIT 33.5 % (37.0-47.0); HEMOGLOBIN 11.4 g/dl (12.0-16.0); IMMATURE GRANULOCYTE % (AUTO) 0.3 % (0.0-5.0); LYMPHOCYTES # (AUTO) 1.1 K/uL (0.60-3.4); LYMPHOCYTES % (AUTO) 28.9 (10.0-50.0); MEAN CORPUSCULAR HEMOGLOBIN 32.8 pg (27.0-31.0); MEAN CORPUSCULAR VOLUME 96.3 fl (81.0-99.0); MONOCYTES # (AUTO) 0.4 K/uL (0.4-2.0); MONOCYTES % (AUTO) 9.4 (0-10); NEUTROPHILS # (AUTO) 2.3 K/ul (2.0-6.9); NEUTROPHILS % (AUTO) 60.6 % (42.2-75.2); PLATELET COUNT 216 10^3/uL (140-440); RDW COEFFICIENT OF VARIATION 11.4 % (11.6-14.8); RED BLOOD COUNT 3.48 10^6/ul (4.20-5.40); WHITE BLOOD COUNT 3.84 K/ul (4.6-10.2)
[2020-04-09 15:16] LABS: ALANINE AMINOTRANSFERASE 16.8 U/L (0-35); ALBUMIN 4.43 g/dL (3.5-5.0); ALKALINE PHOSPHATASE 73.7 U/L (53-141); BILIRUBIN,TOTAL 0.32 mg/dL (0.2-1.3); BLOOD UREA NITROGEN 6.2 mg/dL (7-17); CALCIUM 9.45 mg/dL (8.4-10.2); CARBON DIOXIDE 30.3 mmol/L (22-30.0); CHLORIDE 94.8 mmol/L (98-107); CREATINE KINASE 83.6 U/L (30-135); CREATININE 0.49 mg/dL (0.60-1.30); GLUCOSE 131.5 mg/dL (74-106); POTASSIUM 3.89 mmol/L (3.5-5.1); SODIUM 131.4 mmol/L (134.5-145); TOTAL PROTEIN 7.24 g/dL (6.3-8.2)
[2020-04-09] MEDS ORDERED: TORADOL IVP PRN ×3 (15:17→16:00)
[2020-04-09 15:23] LABS: BILIRUBIN,URINE Negative (NEGATIVE); CLARITY,URINE Clear (CLEAR); COLOR,URINE Yellow (YELLOW); GLUCOSE, URINE (UA) Negative (NEGATIVE); KETONES,URINE Negative (NEGATIVE); LEUKOCYTE ESTERASE ,URINE Negative (NEGATIVE); NITRITE,URINE Negative (NEGATIVE); PROTEIN,URINE Negative (NEGATIVE); URINE, BLOOD Negative (NEGATIVE); UROBILINOGEN,URINE 0.2 (0.2)
[2020-04-09 15:27] LABS: TROPONIN I 0.062 ng/ml (0.0000-0.120)
[2020-04-09] MEDS ORDERED: RESTORIL PO PRN (16:07)
[2020-04-09] MEDS ORDERED: XANAX PO PRN ×2 (16:07→17:00)
--- NOTE | 2020-04-09 16:18 | DI ---
EXAM: Chest one view, frontal view only. HISTORY: Shortness of breath. COMPARISON: 10/11/2018. FINDINGS: Thoracic spinal cord stimulator noted. Heart is enlarged. Atherosclerotic calcifications are present. There is no vascular congestion. Lungs are clear without pleural effusion or pneumoth orax. Degenerative changes seen in the spine and shoulders. IMPRESSION: No acute process.
--- NOTE | 2020-04-09 16:40 | CT ---
EXAM: CT head without contrast. HISTORY: Dizziness. Ataxia. COMPARISON: 06/07/2019. TECHNIQUE: Multiple axial images of the brain were obtained from the skull base through the vertex w ithout intravenous contrast. Multiplanar reformats were provided. FINDINGS: There is no intracranial hemorrhage or extraaxial collection. The fischer-white differentiat ion is maintained without evidence for acute large vascular territory infarction. There are areas of periventricular and subcortical white matter low attenuation. The cortical sulci and cerebral ventr icles are symmetrically enlarged. The basal cisterns are well visualized. There is no hydrocephalus , mass effect, or midline shift. Chronic right sphenoid sinus mucosal disease again seen. Otherwise , the paranasal sinuses and mastoid air cells are clear. The calvarium is intact. Since the prior , there has been no significant interval change. IMPRESSION: 1. No acute intracranial abnormality. 2. Chronic small vessel ischemic changes and atrophy.
--- NOTE | 2020-04-09 16:41 | US ---
EXAM: Ultrasound bilateral carotid duplex. HISTORY: Dizziness. COMPARISON: 02/19/2014. TECHNIQUE: A duplex Doppler study was performed consisting of integrated two dimensional (2D) real-t beatrice imaging color flow Doppler and Doppler spectral analysis utilizing linear array probes. FINDINGS: Please note that estimates of internal carotid artery stenoses are based upon NASCET crite barney. Right carotid: Calcified plaquing without visualized 50% or greater stenosis. Peak systolic velocit y measurement in the right internal carotid artery is 0.87 meters per second. Right internal to comm on carotid artery peak systolic velocity ratio measures 1.3. End diastolic velocity measurement in t he right internal carotid artery is 0.27 meters per second. Flow in the right vertebral artery is an tegrade. Left carotid: Calcified plaquing without visualized 50% or greater stenosis. Peak systolic velocity measurement in the left internal carotid artery is 0.56 meters per second. Left internal to common carotid artery peak systolic velocity ratio measures 1. End diastolic velocity measurement in the le ft internal carotid artery measures 3.2 meters per second. Flow in the left vertebral artery is ante grade. Since the prior study, there has been no significant interval change. IMPRESSION: 1. Mild, less than 50%, right and left internal carotid artery stenoses. 2. Antegrade flow in both vertebral arteries.
--- NOTE | 2020-04-09 16:48 | CT ---
EXAM: CT Abdomen Pelvis HISTORY: Uncontrolled hypertension COMPARISON: 02/06/2018 TECHNIQUE: CT of the Abdomen Pelvis was performed without contrast. Coronal and sagital reformats we re obtained. FINDINGS: Clear lung bases. Partially visualized right low back intrathecal spinal stimulator. Bilateral total hip arthroplasties. Associated metal streak artifact limits evaluation of pelvic str uctures. No acute osseous abnormality. Degenerative change of the thoracolumbar spine. The liver, spleen, pancreas, and adrenal glands are unremarkable. Mild distension of the gallbladder. No hydronephrosis, nephrolithiasis or perinephric fat stranding. 0.7 cm left renal mid/inferior po le cortical hyperdensity measures 77 HU and likely represents a tiny hemorrhagic cyst. Bladder is no t well visualized secondary to streak artifact. Uterus is not definitely visualized, possibly absent . No small or large bowel dilation. No abnormal bowel wall thickening. Colonic diverticulosis without d iverticulitis. Appendix is not visualized. No adenopathy. Normal diameter aorta. Moderate atheroscle rotic calcifications. No abnormal fluid collection, free fluid or free air. IMPRESSION: 1. No urinary or bowel obstruction or acute intra-abdominal findings. 2. Nonspecific mild gallbladder distension without surrounding inflammatory changes. If clinically indicated, ultrasound could further evaluate. 3. Diverticulosis. 4. Atherosclerosis.
[2020-04-09] MEDS: COREG PO SCH (16:52)
[2020-04-09] MEDS: NORCO 10-325 PO PRN ×2 (17:35→22:07)
[2020-04-09] MEDS ORDERED: LASIX ONE (19:55)
[2020-04-09] MEDS: NEURONTIN PO SCH ×2 (20:17)
[2020-04-09 23:10] LABS: CREATINE KINASE 85.8 U/L (30-135)
[2020-04-09] MEDS: RESTORIL PO SCH (23:11)
[2020-04-09 23:23] LABS: TROPONIN I 0.078 ng/ml (0.0000-0.120)
[2020-04-10 05:39] LABS: BASOPHILS % (AUTO) 0.5 % (0.0-3.0); EOSINOPHILS # (AUTO) 0.1 K/ul (0.0-0.7); EOSINOPHILS % (AUTO) 1.3 % (0.0-7.0); HEMATOCRIT 32.8 % (37.0-47.0); HEMOGLOBIN 11.3 g/dl (12.0-16.0); IMMATURE GRANULOCYTE % (AUTO) 0.3 % (0.0-5.0); LYMPHOCYTES # (AUTO) 1.3 K/uL (0.60-3.4); LYMPHOCYTES % (AUTO) 33.2 (10.0-50.0); MEAN CORPUSCULAR HEMOGLOBIN 33.3 pg (27.0-31.0); MEAN CORPUSCULAR HGB CONC 34.5 (31.8-35.4); MEAN CORPUSCULAR VOLUME 96.8 fl (81.0-99.0); MONOCYTES # (AUTO) 0.4 K/uL (0.4-2.0); MONOCYTES % (AUTO) 10.3 (0-10); NEUTROPHILS # (AUTO) 2.1 K/ul (2.0-6.9); NEUTROPHILS % (AUTO) 54.4 % (42.2-75.2); PLATELET COUNT 220 10^3/uL (140-440); RDW COEFFICIENT OF VARIATION 11.5 % (11.6-14.8); RED BLOOD COUNT 3.39 10^6/ul (4.20-5.40)
[2020-04-10 05:49] LABS: ALANINE AMINOTRANSFERASE 15.8 U/L (0-35); ALBUMIN 4.07 g/dL (3.5-5.0); ALKALINE PHOSPHATASE 67.9 U/L (53-141); ASPARTATE AMINO TRANSFERASE 39.5 U/L (14-36); BILIRUBIN,TOTAL 0.39 mg/dL (0.2-1.3); BLOOD UREA NITROGEN 8.4 mg/dL (7-17); CALCIUM 9.15 mg/dL (8.4-10.2); CARBON DIOXIDE 32.2 mmol/L (22-30.0); CHLORIDE 92.7 mmol/L (98-107); CREATININE 0.57 mg/dL (0.60-1.30); GLUCOSE 90.4 mg/dL (74-106); POTASSIUM 3.75 mmol/L (3.5-5.1); TOTAL PROTEIN 6.72 g/dL (6.3-8.2)
[2020-04-10] MEDS ORDERED: LASIX TAB PO SCH (06:30)
[2020-04-10] MEDS: ASPIRIN EC PO SCH (09:27)
[2020-04-10] MEDS: NEURONTIN PO SCH ×4 (09:27→20:22)
[2020-04-10] MEDS: COREG PO SCH ×2 (09:27→17:10)
[2020-04-10] MEDS: NORVASC PO SCH (09:28)
[2020-04-10] MEDS: CRESTOR PO SCH (09:28)
[2020-04-10] MEDS: COZAAR PO SCH (09:28)
--- NOTE | 2020-04-10 09:29 | PCM.PROG ---
Attending Provider: ATTENDING PROVIDER: Dr. FRANSICO BALLARD DATE OF SERVICE: 04/10/20 SUBJECTIVE: This 89 year old /WHITE F was hospitalized 04/09/20 with uncontrolled hypertension, dizziness and a lot of nonspecific complaints for nearly 4-6 weeks requiring a couple of ER visits and several office visits. CT head, abdomen and pelvis were unremarkable. Telemetry showed no arrhythmias. Blood pressure is a lot better in fact on the lower side. REVIEW OF SYSTEMS: CONSTITUTIONAL: No night sweats. No fatigue, malaise, lethargy. No fever or chills. HEENT: Eyes: No visual changes. No eye pain. No eye discharge. ENT: No runny nose. No epistaxis. No sinus pain. No odynophagia. No congestion. RESPIRATORY: No cough, no congestion. No hemoptysis. No shortness of breath. CARDIOVASCULAR: No angina symptoms. No CHF symptoms. No atypical chest pain for CAD. No palpitations. No orthopnea.. GASTROINTESTINAL: No abdominal pain. No nausea or vomiting. No diarrhea or constipation. No hematemesis. No hematochezia. GENITOURINARY: No urgency. No frequency. No dysuria. No hematuria. No obstructive symptoms. No discharge. No pain. No significant abnormal bleeding. MUSCULOSKELETAL: No musculoskeletal pain; no joint swelling. NEUROLOGICAL: Awake, alert, oriented to time, place and person. No headache. No neck pain. No syncope. No seizures. No dizziness. PSYCHIATRIC: Not anxious. No depression. No suicidal thoughts. No homicidal thoughts. SKIN: No rash. No lesions. No wounds. ENDOCRINE: No unexplained weight loss. No weight gain. HEMATOLOGIC/LYMPHATIC: No anemia. No purpura. No petechiae. No prolonged or excessive bleeding. No palpable lymph nodes. PHYSICAL EXAMINATION: GENERAL: The patient is awake, alert and oriented, lying in bed in no distress. VITAL SIGNS: Temperature 98.2 F, Pulse 52, Respiratory Rate 16, BP 108/63, Pulse Ox 97% HEENT: Head normocephalic, atraumatic. Eyes: Extraocular muscles are intact. Pupils are equal, round and reactive to light and accommodation. Ears: No lesions. Nose appeared normal. Throat: No exudate or erythema. NECK: Supple. No JVD, no carotid bruit. No lymphadenopathy or thyromegaly. LUNGS: Clear to auscultation. Percussion note normal. Chest symmetrical. HEART: S1, S2, no S3. No murmurs. No cyanosis or clubbing. No ascites. Pulses: Dorsalis pedis and posterior tibial pulses +1 to +2 both sides. ABDOMEN: Soft. Non-tender. Bowel sounds active. No CVA tenderness. No mass fe lt. EXTREMITIES: No edema. Full range of motion of all extremities, equal. NEUROLOGIC: No focal deficit. Cranial nerves II through XII are grossly intact. No headache, no double vision or headache. SKIN: Warm and dry. Intact. Turgor-normal. LYMPHATIC: No palpable lymph nodes/no lymphedema. MUSCULOSKELETAL: Normal joints with no swelling. Muscle tone is normal. LAB REVIEW: 04/10/20 05:10 04/10/20 05:10 04/10/20 05:10: Sodium 131.0 L, Potassium 3.75, Chloride 92.7 L, Carbon Dioxide 32.2 H, Anion Gap 9.85, BUN 8.4, Creatinine 0.57 L, Estimated GFR (MDRD) 100.00, BUN/Creatinine Ratio 14.73, Glucose 90.4, Calcium 9.15, Total Bilirubin 0.39, AST 39.5 H, ALT 15.8, Alkaline Phosphatase 67.9, Total Protein 6.72, Albumin 4.07, Globulin 2.65, Albumin/Globulin Ratio 1.53 04/10/20 05:10: WBC 3.80 L, RBC 3.39 L, Hgb 11.3 L, Hct 32.8 L, MCV 96.8, MCH 33.3 H, MCHC 34.5, RDW Coeff of Alfie 11.5 L, Plt Count 220, Immature Gran % (Auto) 0.3, Neut % (Auto) 54.4, Lymph % (Auto) 33.2, [place] % (Auto) 10.3 H, Eos % (Auto) 1.3, Baso % (Auto) 0.5, Neut # (Auto) 2.1, Lymph # (Auto) 1.3, [place] # (Auto) 0.4, Eos # (Auto) 0.1, Baso # (Auto) 0.0, Immature Gran # (Auto) 0.0 04/09/20 22:45: Total Creatine Kinase 85.8, Troponin I 0.078 04/09/20 15:15: Urine Color Yellow, Urine Clarity Clear, Urine pH 7.0, Ur Specific [place] 1.015, Urine Protein Negative, Urine Glucose (UA) Negative, Urine Ketones Negative, Urine Blood Negative, Urine Nitrite Negative, Urine Bilirubin Negative, Urine Urobilinogen 0.2, Ur Leukocyte Esterase Negative 04/09/20 14:56: Sodium 131.4 L, Potassium 3.89, Chloride 94.8 L, Carbon Dioxide 30.3 H, Anion Gap 10.19, BUN 6.2 L, Creatinine 0.49 L, Estimated GFR (MDRD) 119.00, BUN/Creatinine Ratio 12.65, Glucose 131.5 H, Calcium 9.45, Total Bilirubin 0.32, AST 43.0 H, ALT 16.8, Alkaline Phosphatase 73.7, Total Creatine Kinase 83.6, Troponin I 0.062, Total Protein 7.24, Albumin 4.43, Globulin 2.81, Albumin/Globulin Ratio 1.57 04/09/20 14:56: WBC 3.84 L, RBC 3.48 L, Hgb 11.4 L, Hct 33.5 L, MCV 96.3, MCH 32.8 H, MCHC 34.0, RDW Coeff of Alfie 11.4 L, Plt Count 216, Immature Gran % (Auto) 0.3, Neut % (Auto) 60.6, Lymph % (Auto) 28.9, [place] % (Auto) 9.4, Eos % (Auto) 0.3, Baso % (Auto) 0.5, Neut # (Auto) 2.3, Lymph # (Auto) 1.1, [place] # (Auto) 0.4, Eos # (Auto) 0.0, Baso # (Auto) 0.0, Immature Gran # (Auto) 0.0 ASSESSMENT: Please see below. 1. Hypertension, uncontrolled 2. Dizziness, ataxia likely related to aging process and weakness of muscles 3. The patient has sedentary lifestyle for number of years. Syncope could be possible. PLAN: 1. Echo Plan and coordination of the patient's care discussed in the presence of Transportation Escort and nurse. CONDITION: Stable SCRIBED BY: CALLIE CHAMPAGNE, Clinical Ob scribed while in presence of service performed by Dr. FRANSICO BALLARD on 04/10/20 ([id number])
[2020-04-10] MEDS: NORCO 10-325 PO PRN ×2 (13:31→19:23)
--- NOTE | 2020-04-10 15:42 | RS.PTINEVL ---
Subjective - Patient information Date of Evaluation: 04/10/20 Date of Arrival on Unit: 04/09/20 Admitted From:: Home Diagnosis: HTN, syncope, Usual Living Arrangement: With Spouse Home Environment: House, Ramp Medical History: Hypertension, COPD, Arthritis Medical History Comments:: osteoporosis, anemia, cardiomyopathy, dizziness, CKD Surgical History: Hip Replacement Surgical History Comments:: neuostimulator present Medications: see chart Subjective Information/ Patient Comments:: pt states that she was getting weak at home. States she feels like she needs to get up and move around - Level of function Prior to this admission, the patient could do the following:: Independent Selfcare, Independent ADL's, Independent Ambulation, Perform Education Diagnostician/Cooking, Participated in Social Activities Outside home Current Level of Function: Partially Dependent Current Equipment Used at Home: CANE, Rollator, OXYGEN, SHOWER CHAIR Interventions - Objective Patient Orientation: Person, Place, Time, Situation Current Interventions: IV's, Oxygen, Telemetry Range of Motion - ROM Right Upper Extremity AROM: WFL's Left Upper Extremity AROM: WFL's Right Lower Extremity AROM: WFL's Left Lower Extremity AROM: WFL's Muscle Strength - Muscle Strength Right Upper Extremity Strength: Mild Weakness (grossly 4-/5) Left Upper Extremity Strength: Mild Weakness (grossly 4-/5) Right Lower Extremity Strength: Mild Weakness (hip flex 4-/5, knee flex/ext 4/5, ankle DF/PF 4/5) Left Lower Extremity Strength: Mild Weakness (hip flex 4-/5, knee flex/ext 4/5, ankle DF/PF 4/5) Sensation - Sensation Right Upper Extremity Sensation: Intact/Normal Left Upper Extremity Sensation: Intact/Normal Right Lower Extremity Sensation: Intact/Normal Left Lower Extremity Sensation: Intact/Normal Palpation Palpation Findings: None/Normal Balance - Sitting Balance and Reactions Static Sitting Balance: Fair Dynamic Sitting Balance: Poor Sitting Equilibrium Reactions: Delayed Right Sitting Protective Reactions: Delayed Left, Delayed Right - Standing Balance and Reactions Static Standing Balance: Poor Dynamic Standing Balance: Poor Standing Equilibrium Reactions: Delayed Left, Delayed Right Standing Protective Reactions: Delayed Left, Delayed Right Functional Mobility - Bed Mobility Sit to Supine: CGA, Min Assist - Transfers Sit to Stand: CGA, Min Assist Stand to Sit: CGA - Safety Awareness Safety Awareness: Good ANGELO INDEX SCORE: n/a Ambulation - Ambulation Assistive Device Used: Rolling Walker Orthotic/Prosthetic Device: No Distance: 110ft Assistance needed with Ambulation: CGA Gait Deviations: Forward posture, Short stride Factors Affecting Ambulation: Decreased Balance, Weakness, Decreased Safety, Limited Endurance Treatment time - Time with patient Length of Evaluation: 21 Total treatment time: 26 Patient Education - Education Patient Education: Activity Modification, Education of Plan of Care Teaching Recipient: Patient Teaching Methods: Discussion Comments: discussion regarding POC as well as pt plans to return home. Assessment - Assessment Problem List:: Decreased level of function, Requires training/education, Decreased safety/Risk of falls, Weakness Rehab Potential: Fair Further Therapy Indicated?: Yes Candidate for Swing Bed for Therapy Services?: Would need to reassess next week due to pt functional status. Evaluation Complexity: HISTORY: Medium, EXAM OF BODY SYSTEMS: Medium, CLINICAL PRESENTATION: Medium, CLINICAL DECISION MAKING: Medium Patient's Goal(s): Return home with as independent as possible Short Term Goals GOAL #1: pt demonstrate independence with rolling and scooting in bed. Goal to be met by: 04/13/20 GOAL #2: Supine to/from sit SBA Goal to be met by: 04/13/20 GOAL #3: Sit to/from stand CGA Goal to be met by: 04/13/20 GOAL #4: pt amb with rwx 120ft with CGa with improved posture and step length. Goal to be met by: 04/13/20 GOAL #5: Improve dyn stand balance fair Goal to be met by: 04/13/20 Oval Or Circular Glass Cutter Goals GOAL #1: Sup to/from sit to/from stand independently Goal to be met by: 04/15/20 GOAL #2: pt amb with rwx functional household distances independently Goal to be met by: 04/15/20 GOAL #3: Improve BLE strength 4+ to 5/5 Goal to be met by: 04/15/20 Plan Plan of Care: Therapeutic EX, Therapeutic Activity Other:: gait training Frequency of Treatment: BID Duration of Treatment: 5 days Anticipated Discharge Destination: Home Treatment Diagnosis (ICD 10 Codes): impaired balance R 26.81. gait difficulty R 26.2. risk of falls z91.81 Has the Physician been added for Co-signature?: Yes
[2020-04-10] MEDS: RESTORIL PO SCH (20:21)
[2020-04-11] MEDS: NORCO 10-325 PO PRN ×4 (01:31→21:19)
[2020-04-11 05:27] LABS: BASOPHILS % (AUTO) 0.5 % (0.0-3.0); EOSINOPHILS # (AUTO) 0.1 K/ul (0.0-0.7); HEMATOCRIT 32.5 % (37.0-47.0); HEMOGLOBIN 11.1 g/dl (12.0-16.0); IMMATURE GRANULOCYTE % (AUTO) 0.3 % (0.0-5.0); LYMPHOCYTES # (AUTO) 1.7 K/uL (0.60-3.4); LYMPHOCYTES % (AUTO) 47.5 (10.0-50.0); MEAN CORPUSCULAR HEMOGLOBIN 32.6 pg (27.0-31.0); MEAN CORPUSCULAR HGB CONC 34.2 (31.8-35.4); MEAN CORPUSCULAR VOLUME 95.6 fl (81.0-99.0); MONOCYTES # (AUTO) 0.4 K/uL (0.4-2.0); MONOCYTES % (AUTO) 10.2 (0-10); NEUTROPHILS # (AUTO) 1.4 K/ul (2.0-6.9); NEUTROPHILS % (AUTO) 38.5 % (42.2-75.2); PLATELET COUNT 193 10^3/uL (140-440); RDW COEFFICIENT OF VARIATION 11.4 % (11.6-14.8); WHITE BLOOD COUNT 3.64 K/ul (4.6-10.2)
[2020-04-11 05:39] LABS: ALANINE AMINOTRANSFERASE 15.1 U/L (0-35); ALBUMIN 3.68 g/dL (3.5-5.0); ALKALINE PHOSPHATASE 68.1 U/L (53-141); ASPARTATE AMINO TRANSFERASE 35.3 U/L (14-36); BILIRUBIN,TOTAL 0.35 mg/dL (0.2-1.3); BLOOD UREA NITROGEN 8.5 mg/dL (7-17); CALCIUM 8.8 mg/dL (8.4-10.2); CARBON DIOXIDE 32.3 mmol/L (22-30.0); CHLORIDE 90.7 mmol/L (98-107); CREATININE 0.46 mg/dL (0.60-1.30); GLUCOSE 89.6 mg/dL (74-106); POTASSIUM 3.73 mmol/L (3.5-5.1); SODIUM 128.9 mmol/L (134.5-145); TOTAL PROTEIN 6.28 g/dL (6.3-8.2)
[2020-04-11] MEDS: CRESTOR PO SCH (09:26)
[2020-04-11] MEDS: COREG PO SCH ×2 (09:26→17:23)
[2020-04-11] MEDS: NEURONTIN PO SCH ×4 (09:26→20:44)
[2020-04-11] MEDS: COZAAR PO SCH (09:26)
[2020-04-11] MEDS: NORVASC PO SCH (09:27)
[2020-04-11] MEDS: ASPIRIN EC PO SCH (09:27)
[2020-04-11] MEDS ORDERED: GLYCERIN SUPPOSITORY RC PRN (12:35)
[2020-04-11] MEDS: RESTORIL PO SCH (20:44)
[2020-04-12 05:44] LABS: BASOPHILS % (AUTO) 0.3 % (0.0-3.0); EOSINOPHILS # (AUTO) 0.1 K/ul (0.0-0.7); EOSINOPHILS % (AUTO) 2.3 % (0.0-7.0); HEMATOCRIT 36.8 % (37.0-47.0); HEMOGLOBIN 12.4 g/dl (12.0-16.0); IMMATURE GRANULOCYTE % (AUTO) 0.3 % (0.0-5.0); LYMPHOCYTES # (AUTO) 1.5 K/uL (0.60-3.4); LYMPHOCYTES % (AUTO) 38.6 (10.0-50.0); MEAN CORPUSCULAR HEMOGLOBIN 32.5 pg (27.0-31.0); MEAN CORPUSCULAR HGB CONC 33.7 (31.8-35.4); MEAN CORPUSCULAR VOLUME 96.3 fl (81.0-99.0); MONOCYTES # (AUTO) 0.3 K/uL (0.4-2.0); MONOCYTES % (AUTO) 8.6 (0-10); NEUTROPHILS % (AUTO) 49.9 % (42.2-75.2); PLATELET COUNT 217 10^3/uL (140-440); RDW COEFFICIENT OF VARIATION 11.4 % (11.6-14.8); RED BLOOD COUNT 3.82 10^6/ul (4.20-5.40); WHITE BLOOD COUNT 3.94 K/ul (4.6-10.2)
[2020-04-12 05:55] LABS: ALANINE AMINOTRANSFERASE 16.8 U/L (0-35); ALBUMIN 4.29 g/dL (3.5-5.0); ALKALINE PHOSPHATASE 73.4 U/L (53-141); ASPARTATE AMINO TRANSFERASE 45.2 U/L (14-36); BILIRUBIN,TOTAL 0.42 mg/dL (0.2-1.3); BLOOD UREA NITROGEN 9.9 mg/dL (7-17); CALCIUM 9.65 mg/dL (8.4-10.2); CARBON DIOXIDE 34.6 mmol/L (22-30.0); CHLORIDE 91.4 mmol/L (98-107); CREATININE 0.48 mg/dL (0.60-1.30); GLUCOSE 88.9 mg/dL (74-106); POTASSIUM 4.29 mmol/L (3.5-5.1); SODIUM 130.9 mmol/L (134.5-145); TOTAL PROTEIN 7.27 g/dL (6.3-8.2)
[2020-04-12] MEDS: NORCO 10-325 PO PRN ×2 (07:51→13:07)
[2020-04-12] MEDS: NEURONTIN PO SCH ×2 (08:42→08:43)
[2020-04-12] MEDS: COREG PO SCH (08:42)
[2020-04-12] MEDS: NORVASC PO SCH (08:43)
[2020-04-12] MEDS: CRESTOR PO SCH (08:43)
[2020-04-12] MEDS: COZAAR PO SCH (08:43)
[2020-04-12] MEDS: ASPIRIN EC PO SCH (08:43)
[2020-04-12 10:19] VITALS: BP 110/60; TEMP 98
--- NOTE | 2020-04-13 08:22 | ECHO2D ---
Date of Exam: 04/12/2020 Ordering Physician: DR. FRANSICO BALLARD Room #: 104 Reason for Echo: HTN, DIZZINESS M-Mode Normal Adult Results LV Dimensions Normal Adult Results AoV Opening excursions >1.6 >1.6 LVEDD-base- 3.5-5.8 5.6 Ao root dimensions 2.0-3.7 3.2 LVESD-base- 3.1-4.6 L. Atrium dimensions 1.9-3.8 4.5 Post. Wall thickness 0.8-1.1 1.2 IV septum (thickness) 0.7-1.2 1.2 Post. Wall excursion 0.72-1.3 0.7 Septal motion 0.5 Systolic motion R. Ventricular cavity 1.5-2.0 NORMAL LVEF 60% 30-35% Paradoxical septal wall motion NORMAL 2-D : HYPOKINETIC LEFT VENTRICLE, ENLARGED LEFT ATRIAL CAVITY--MILD PERICARDIAL EFFUSION, CALCIFIC AORTIC VALVES--NO STENOTIC VALVES M-MODE: MV: NORMAL AV: CALCIFIC LEAFLETS--NO STENOSIS TV: NORMAL PV: NORMAL CHAMBER SIZE: ENLARGED LEFT ATRIAL CAVITY --BORDERLINE LEFT VENTRICLE CAVITY WALL MOTION: HYPOKINETIC LEFT VENTRICLE PERICARDIUM: MILD PERICARDIAL EFFUSION INTERPRETATION: 1. LEFT VENTRICULAR HYPERTROPHY--BORDERLINE 2. BORDERLINE LEFT VENTRICLE CAVITY ENLARGEMENT 3. LEFT ATRIAL CAVITY ENLARGEMENT 4. HYPOKINETIC LEFT VENTRICLE WITH EJECTION FRACTION 30 TO 35% 5. CALCIFIC AORTIC VALVES--NO STENOSIS 6. MILD PERICARDIAL EFFUSION MTDD
--- NOTE | 2020-04-13 11:23 | DS ---
DATE OF SERVICE: 04/12/2020 FINAL DIAGNOSIS: 1. Uncontrolled hypertension 2. Dizziness likely because of postural hypotension 3. 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 Cardiomyopathy likely ischemic, ejection fraction 30-355 5. Mild pericardial effusion unknown etiology 6. Dyslipidemia 7. Generalized osteoarthritis 8. Osteoporosis with kyphosis 9. Generalized anxiety disorder MEDICATIONS AT DISCHARGE: Coreg 6.125mg PO daily Amlodipine 5mg at night Losartan 100mg in the morning Rosuvastatin Aspirin Xanax Gabapentin NEW PRESCRIPTIONS: Amlodipine 5mg PO bedtime Coreg 6.25mg PO BID DISCONTINUED MEDICATIONS: DIET INSTRUCTIONS: Resume you regular diet. ACTIVITY: Resume activity as tolerated SMOKING: HOSPITAL COURSE: 89 year old white female hospitalized with multiple complaints mainly her problem with uncontrolled hypertension with some dizziness and lightheadedness. Her dizziness and lightheadedness is very common and likely from multiple etiology stemming from her advanced age with very poor posture and severe kyphosis, ataxia is also coming from process with poor posture with kyphosis. Blood pressure was brought under control with low dose Coreg. The patient's pulse has gone down to 55 top 70 per minute. No arrhythmias noted. Amlodipine and Losartan was continued along with Rosuvastatin. The echocardiogram showed mild LVH with enlarged LA cavity borderline enlarged LV cavity with ejection fraction 30-35%. Didn't have any symptoms of CHF at present time. Her oxygen saturation is close to 89% on room air. BMI is 21. She was not put on any diuretic or was tried on Entresto because of lack of symptoms like CHF or lack of ability to ambulate because of cardiovascular disease. In any case may evaluate for it as an outpatient if the need arises later on. She was explained about these findings. She is oriented to time, place and person. CONDITION: STABLE TIME SPENT: More than 60 minutes. MOUSTAPHA
--- NOTE | 2020-04-13 11:24 | PN ---
04/09/2020: Level 5 04/10/2020: Intermediate 04/11/2020: Intermediate 04/12/2020: D as in discharge MTDD
--- NOTE | 2020-04-13 13:40 | PN ---
DATE OF SERVICE: 04/12/2020 DISCHARGE NOTE SUBJECTIVE: 89 year old white female hospitalized with uncontrolled hypertension, dizziness, ataxia and near syncopal episode. The patient's neurological status has been normal so far. The patient's main problem seems to be unable to take medication on regular basis and a lot of osteoarthritic changes with kyphosis and poor posture. Near syncopal episode, never had a black out spell likely from change in the posture. Her blood pressure is well controlled. The new medication is Coreg. REVIEW OF SYSTEMS: CONSTITUTIONAL: No night sweats. No fatigue, malaise, lethargy. No fever or chills. HEENT: Eyes: No visual changes. No eye pain. No eye discharge. ENT: No runny nose. No epistaxis. No sinus pain. No sore throat. No odynophagia. No congestion. RESPIRATORY: No cough, no congestion. No hemoptysis. No shortness of breath. CARDIOVASCULAR: No angina symptoms. No CHF symptoms. No atypical chest pain for CAD. No palpitations. No PND. No orthopnea. GASTROINTESTINAL: No abdominal pain. No nausea or vomiting. No diarrhea or constipation. No hematemesis. No hematochezia. GENITOURINARY: No urgency. No frequency. No dysuria. No hematuria. No obstructive symptoms. No discharge. No pain. No significant abnormal bleeding. MUSCULOSKELETAL: No musculoskeletal pain; no joint swelling. NEUROLOGICAL: No headache. No neck pain. No syncope. No seizures. No dizziness. PSYCHIATRIC: Not anxious. No depression. No suicidal thoughts. No homicidal thoughts. SKIN: No rash. No lesions. No wounds. ENDOCRINE: No unexplained weight loss. No weight gain. HEMATOLOGIC/LYMPHATIC: No anemia. No purpura. No petechiae. No prolonged or excessive bleeding. No palpable lymph nodes. PHYSICAL EXAMINATION: GENERAL: The patient is oriented to time, place and person. VITAL SIGNS: Temperature 97.6, pulse 53, respiratory rate 18, blood pressure 146/79 and pulse ox 100% on 2 liters. HEENT: Head normocephalic, atraumatic. Eyes: Extraocular muscles are intact. Pupils are equal, round and reactive to light and accommodation. Ears: No lesions. Nose appeared normal. Throat: No exudate or erythema. NECK: Supple. No JVD, no carotid bruit. No lymphadenopathy or thyromegaly. LUNGS: Decreased breath sounds but clear to auscultation. Percussion note normal. Chest symmetrical. HEART: S1, S2, no S3. No murmurs. No cyanosis or clubbing. No ascites. Pulses: Dorsalis pedis and posterior tibial pulses +1 to +2 bilaterally. ABDOMEN: Soft. Nontender. Bowel sounds active. No CVA tenderness. No mass felt. EXTREMITIES: No edema. Full range of motion of all extremities, equal. NEUROLOGIC: No focal deficit. Cranial nerves II through XII are grossly intact. No headache, no double vision or headache. SKIN: Not dry. Intact. Turgor - normal. LYMPHATIC: No palpable lymph nodes/no lymphedema. MUSCULOSKELETAL: Normal joints with no swelling. Muscle tone is normal. LABS: Hgb 12.4, hct 36, WBC 3,900 normal differential,creatinine 0.4, BUN 9, potassium 4.2. ASSESSMENT: 1. Uncontrolled hypertension, resolved with Carvedilol PLAN: 1. Continue Amlodipine at night and Cozaar in the morning 2. 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 The patient's dizziness is because of the change in the posture. Ataxia is also related to generalized osteoarthritis with poor posture with kyphosis. CONDITION :Stable TIME SPENT: More than 30 minutes. Plan and coordination of the patient's care discussed in the presence of nurse. MOUSTAPHA
--- NOTE | 2020-04-13 14:52 | PN ---
DATE OF SERVICE: 04/11/2020 SUBJECTIVE: 89 year old white female hospitalized with uncontrolled hypertension, dizziness, ataxia and near syncopal episode. The patient's condition is stable. So far during the stay in the hospital for the past two days that patient has normal blood pressure with no evidence of any focal neurological deficit. REVIEW OF SYSTEMS: CONSTITUTIONAL: No night sweats. No fatigue, malaise, lethargy. No fever or chills. HEENT: Eyes: No visual changes. No eye pain. No eye discharge. ENT: No runny nose. No epistaxis. No sinus pain. No sore throat. No odynophagia. No congestion. RESPIRATORY: No cough, no congestion. No hemoptysis. No shortness of breath. CARDIOVASCULAR: No angina symptoms. No CHF symptoms. No atypical chest pain for CAD. No palpitations. No PND. No orthopnea. GASTROINTESTINAL: No abdominal pain. No nausea or vomiting. No diarrhea or constipation. No hematemesis. No hematochezia. GENITOURINARY: No urgency. No frequency. No dysuria. No hematuria. No obstructive symptoms. No discharge. No pain. No significant abnormal bleeding. MUSCULOSKELETAL: No musculoskeletal pain; no joint swelling. Pain pertaining to osteoarthritic changes she has. NEUROLOGICAL: No headache. No neck pain. No syncope. No seizures. No dizziness. PSYCHIATRIC: Not anxious. No depression. No suicidal thoughts. No homicidal thoughts. SKIN: No rash. No lesions. No wounds. ENDOCRINE: No unexplained weight loss. No weight gain. HEMATOLOGIC/LYMPHATIC: No anemia. No purpura. No petechiae. No prolonged or excessive bleeding. No palpable lymph nodes. PHYSICAL EXAMINATION: VITAL SIGNS: Temperature 97.5, pulse 55, respiratory rate 14, blood pressure 132/75 and pulse ox 100%. HEENT: Head normocephalic, atraumatic. Eyes: Extraocular muscles are intact. Pupils are equal, round and reactive to light and accommodation. Ears: No lesions. Nose appeared normal. Throat: No exudate or erythema. NECK: Supple. No JVD, no carotid bruit. No lymphadenopathy or thyromegaly. LUNGS:Decreased breath sounds but clear to auscultation. Percussion note normal. Chest symmetrical. HEART: S1, S2, no S3. No murmurs. No cyanosis or clubbing. No ascites. Pulses: Dorsalis pedis and posterior tibial pulses +1 to +2 bilaterally. ABDOMEN: Soft. Nontender. Bowel sounds active. No CVA tenderness. No mass felt. EXTREMITIES: No edema. Full range of motion of all extremities, equal. NEUROLOGIC: No focal deficit. Cranial nerves II through XII are grossly intact. No headache, no double vision or headache. SKIN: Not dry. Intact. Turgor - normal. LYMPHATIC: No palpable lymph nodes/no lymphedema. MUSCULOSKELETAL: Normal joints with no swelling. Muscle tone is normal. LABS: Hgb 11.1, hct 32, WBC 3,600 normal differential, creatinine 0.4, BUN 8, potassium 3.7 ASSESSMENT: 1. Uncontrolled hypertension controlled now 2. Ataxia which is chronic from age process and poor musculoskeletal posture with kyphosis 3. Near syncopal episode could be from dehydration with postural changes PLAN: 1. The patient will have an echo tomorrow. TIME SPENT: More than 30 minutes. Plan and coordination of the patient's care discussed in the presence of nurse. MOUSTAPHA
--- NOTE | 2020-04-16 08:38 | HP ---
DATE OF SERVICE: 04/09/20 REASON FOR HOSPITALIZATION/HISTORY OF PRESENT ILLNESS: 89-year-old female who went to the ER on Monday, BP 210/90. The blood pressure has not been any lower at home, feeling dizzy, near syncope episodes times three. Denies chest pain. PAST MEDICAL HISTORY: Hypertension Ataxia Anxiety GERD DJD spine Vitamin D deficiency Overactive bladder Chronic bronchitis Cardiomyopathy PAST SURGICAL HISTORY: Eye surgery Bilateral hip replacement REVIEW OF SYSTEMS: CONSTITUTIONAL: Fatigue. No night sweats. No fatigue, malaise, lethargy. No fever or chills. HEENT: Eyes: No visual changes. No eye pain. No eye discharge. ENT: No runny nose. No epistaxis. No sinus pain. No sore throat. No odynophagia. No ear pain. No congestion. RESPIRATORY: No cough, no congestion. No hemoptysis. No shortness of breath. CARDIOVASCULAR: No angina symptoms. No CHF symptoms. No atypical chest pain for CAD. No palpitations. No PND. No orthopnea. GASTROINTESTINAL: Abdominal pain with off and on constipation. No nausea or vomiting. No diarrhea or constipation. No hematemesis. No hematochezia. GENITOURINARY: No urgency. No frequency. No dysuria. No hematuria. No obstructive symptoms. No discharge. No pain. No significant abnormal bleeding. MUSCULOSKELETAL: Osteoarthritis pain. NEUROLOGICAL: Positive for headache, dizziness. No neck pain. No syncope. No seizures. PSYCHIATRIC: Anxious. No depression. No suicidal thoughts. No homicidal thoughts. SKIN: No rash. No lesions. No wounds. ENDOCRINE: No unexplained weight loss. No weight gain. HEMATOLOGIC/LYMPHATIC: No anemia. No purpura. No petechiae. No prolonged or excessive bleeding. No palpable lymph nodes. PERSONAL/FAMILY/SOCIAL HISTORY: . 4 children. Smoker- 2 to 3 cigarettes a day, quit 2004. No alcohol use. No illicit drug use. Family History: Father and Mother . Brother(s) - 1, Sister(s) 0. MEDICATIONS: Crestor 10 mg daily Cozaar 100 mg daily Lasix 20 mg daily Norvasc 5 mg daily Neurontin 400 mg b.i.d. Restoril 30 mg h.s. [place] 10/325 mg 4-5 day ASA 81 mg p.r.n. 02 at h.s. Xanax 0.25 mg 1/2 to 1 p.r.n. daily Lexapro 10 mg ALLERGIES: CELECOXIB, IODINATED CONTRAST MEDIA PHYSICAL EXAMINATION: GENERAL: The patient is oriented times three. VITAL SIGNS: Pulse 67, BP 178/84, temperature 97.9, 02 sat 96%, Unable to weigh. Height 5'1". HEENT: Head normocephalic, atraumatic. Eyes: Extraocular muscles are intact. Pupils are equal, round and reactive to light and accommodation. Ears: No lesions. Nose appeared normal. Throat: No exudate or erythema. NECK: Supple. No JVD, no carotid bruit. No lymphadenopathy or thyromegaly. LUNGS: Decreased breath sounds. Clear to auscultation. Percussion note normal. Chest symmetrical. HEART: S1, S2, no S3. Grade I/ systolic murmur. No cyanosis or clubbing. No ascites. Pulses: Dorsalis pedis and posterior tibial pulses +1 to +2 bilaterally. ABDOMEN: Soft. Mild tenderness. Bowel sounds active. No CVA tenderness. No mass felt. EXTREMITIES: Trace bilateral lower extremity edema. Full range of motion of all extremities, equal. NEUROLOGIC: No focal deficit. Cranial nerves II through XII are grossly intact. No headache, no double vision or headache. SKIN: Not dry. Intact. Turgor - normal. LYMPHATIC: No palpable lymph nodes/no lymphedema. MUSCULOSKELETAL: Normal joints with no swelling. Muscle tone is normal. RECTAL: Dr. Sanchez - refused repeat. PELVIC: Advised yearly. Mammogram 03/21/18 refused. Colocare refused. ASSESSMENT: 1. Uncontrolled hypertension. 2. Dizziness. 3. Ataxia. 4. Near syncope. 5. Depression 6. Cardiomyopathy 7. History of lumbar spasms 8. Chronic bronchitis 9. History of respiratory failure with pneumonia 10. 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 Overactive bladder 13. Vitamin D deficiency 14. Hypertension 15. 02 at h.s. 16. GERD 17. Total hip replacement, right - Dr. Papito Joseph 18. Anxiety 19. Left cataract 20. DJD spine - Dr. Nieto 21. Noncompliant with medication, diet and lifestyle PLAN: 1. Admit 2. Routine telemetry orders 3. CBC, CMP now and daily 4. Lasix 20 mg IV times one 5. Continue home medications 6. Start Coreg 3.125 p.o. b.i.d. 7. Bilateral carotid scan 8. MRI brain with and without - do first 9. CT abdomen and pelvis with and without 10. Toradol 15 mg IV q.8h p.r.n. 11. 2D Echocardiogram 12. Regular diet 13. 02 @ night p.r.n. TIME SPENT: More than 70 minutes. MTDD
--- NOTE | 2020-04-17 10:36 | PN ---
DATE OF SERVICE: 04/09/20 SUBJECTIVE: DATE OF SERVICE: 04/09/20 SUBJECTIVE: The patient was seen and examined with the nurse practitioner and the patient was hospitalized with multiple complaints. The main problem is uncontrolled systolic hypertension along with dizziness, light-headedness. The patient will have cardiac workup along with CT scan of the head, et cetera. The was present in the room. He also agreed and is now willing to go to the hospital for further workup. The patient has been seen in the emergency room in the past two weeks a couple of times. The patient has been seen 3 to 4 times in the past four weeks. TIME SPENT: More than 30 minutes. TIME SPENT: More than 30 minutes. Plan and coordination of the patient's care discussed in the presence of nurse. MOUSTAPHA
== END 2020-04-12 13:35 | disposition home or self-care (01) | DRG 312 ==
LOC: MEDSURG A 14:16
PROVIDERS: ADMIT Internal Medicine; ATTEND Internal Medicine